=== PATIENT | male | born 1975 | race Native Hawaiian/Other Pacific Islander ===

== ENCOUNTER 2017-03-14 02:08 | Inpatient (IN) | payer OTHER ==
[2017-03-14 03:10] LABS: Basophils % (A) 0 %; CH 34.8; CHCM 34.6; Eosinophils # (A) 0.3 k/uL (0-0.7); Eosinophils % (A) 3 %; HCT 37.6 % (39.0-53.0); HDW 2.71; HGB 13.6 gm/dL (13.0-17.5); Luc # (Auto) 0.27; Luc % (Auto) 2; Lymphocytes # (A) 2.6 k/uL (1.0-4.8); Lymphocytes % (A) 22 %; MCH 36.7 pg (25.0-35.0); MCHC 36.3 g/dL (31.0-37.0); MCV 100.9 fL (80.0-100.0); Macrocytosis Slight; Mean Platelet Volume 7.3; Monocytes # (A) 0.6 k/uL (0-1.0); Monocytes % (A) 5 %; Neutrophils # (A) 8.1 k/uL (1.3-7.7); Neutrophils % (A) 68 %; RBC 3.72 m/uL (4.30-5.90); RDW 13.5 % (11.5-15.5); WBC 11.9 k/uL (3.8-10.6); WBC (Perox) 11.77
--- NOTE | 2017-03-14 03:16 | ED ---
Extremity Problem HPI <Roland Myers - Last Filed: 03/14/17 04:32> - General Source: patient, RN notes reviewed, old records reviewed Mode of arrival: ambulatory Limitations: no limitations <Kimberly Corbin - Last Filed: 03/14/17 05:04> - General Chief complaint: Extremity Problem,Nontraumatic Stated complaint: right knee pain Time Seen by Provider: 03/14/17 02:18 - History of Present Illness Initial comments: This is a 41-year-old male presenting to the ED chief complaint of right knee pain for the past week. Patient reports that he was seen at [facility] and x-rays told he had arthritis. Patient states that since then he has had increased redness and swelling to the knee. Patient reports pain with flexion. Patient states that he is able to bear weight but it is very difficult. Patient denies any calf pain, foot or ankle pain. Denies any peripheral paresthesias. He denies any trauma. Patient reports the pain started after he woke up on Wednesday morning. Patient reports that he has been walking on it at work this week. She denies any fever or chills. He denies any laceration over the knee. Patient denies any recent fever, chills, shortness of breath, chest pain, back pain, abdominal pain, nausea vomiting, numbness or tingling, dysuria or hematuria, constipation or diarrhea, headaches or visual changes, or any other current symptoms (Kimberly Corbin) - Related Data Allergies Allergy/AdvReac Type Severity Reaction Status Date / Time No Known Allergies Allergy Verified 03/14/17 02:15 Review of Systems ROS Other: All systems not noted in ROS Statement are negative. <Roland Myers - Last Filed: 03/14/17 04:32> ROS Other: All systems not noted in ROS Statement are negative. <Kimberly Corbin - Last Filed: 03/14/17 05:04> ROS Statement: Those systems with pertinent positive or pertinent negative responses have been documented in the HPI. Past Medical History Past Medical History: No Reported History History of Any Multi-Drug Resistant Organisms: None Reported Additional Past Surgical History / Comment(s): cyst removed from jaw, reconstructive surgery post dog bite. Past Psychological History: No Psychological Hx Reported Smoking Status: Current every day smoker Past Alcohol Use History: None Reported Past Drug Use History: Marijuana <Kimberly Corbin - Last Filed: 03/14/17 05:04> General Exam <Roland Myers - Last Filed: 03/14/17 04:32> Limitations: no limitations General appearance: alert, in no apparent distress Head exam: Present: atraumatic, normocephalic, normal inspection Eye exam: Present: normal appearance, PERRL, EOMI. Absent: scleral icterus, conjunctival injection, periorbital swelling ENT exam: Present: normal exam, mucous membranes moist Neck exam: Present: normal inspection. Absent: tenderness, meningismus, lymphadenopathy Respiratory exam: Present: normal lung sounds bilaterally. Absent: respiratory distress, wheezes, rales, rhonchi, stridor Cardiovascular Exam: Present: regular rate, normal rhythm, normal heart sounds. Absent: systolic murmur, diastolic murmur, rubs, gallop, clicks GI/Abdominal exam: Present: soft, normal bowel sounds. Absent: distended, tenderness, guarding, rebound, rigid Extremities exam: Present: normal inspection, full ROM, normal capillary refill. Absent: tenderness, pedal edema, joint swelling, calf tenderness Right Upper Leg exam: Present: normal inspection, full ROM Knee exam: Present: tenderness, swelling. Absent: normal inspection, full ROM ( Patient's right knee is swollen, red and tender.) Lower Leg exam: Present: normal inspection, full ROM Ankle exam: Present: normal inspection, full ROM Foot/Toe exam: Present: normal inspection, full ROM Neurovascular tendon exam: Present: no vascular compromise Gait: observed and limited by pain Back exam: Present: normal inspection <Kimberly Corbin - Last Filed: 03/14/17 05:04> - General Exam Comments Initial Comments: Pleasant 41-year-old male. No distress. (Kimberly Corbin) Procedures - Joint Aspiration/Injection Consent Obtained: verbal consent Time Out Performed: Yes Indications: R/O septic arthritis Side of Body: right Joint Aspirated: knee Skin Prep: Chlorhexidine Local Anesthesia Used: Lidocaine 1% Needle Size Used: 22G Patient Tolerated Procedure: well, no complications <Roland Myers - Last Filed: 03/14/17 04:32> <Kimberly Corbin - Last Filed: 03/14/17 05:04> - Joint Aspiration/Injection Additional Comments: Unable to obtain fluid for sample. Care was taken not to proceed over area of erythema. (Roland Myers) Medical Decision Making - Lab Data Result diagrams: 03/14/17 02:33 <Roland Myers - Last Filed: 03/14/17 04:32> - Lab Data Result diagrams: 03/14/17 02:33 - Radiology Data Radiology results: report reviewed <Kimberly Corbin - Last Filed: 03/14/17 05:04> - Medical Decision Making Patient reevaluated by myself, Dr. Myers. Patient does have mild erythema of the right upper [place]. Patient does have effusion with anterior knee tenderness. Patient does meet sepsis criteria with cellulitis diagnosed at 4: 20 AM. Unsuccessful arthrocentesis 2 by myself. Case was discussed with Dr. Abarca, who will admit for hospital call. Orthopedics will be consulted. IV antibiotics have been started. (Roland Myers) This is a 41-year-old male presenting to the ED chief complaint of right knee pain for the past week. Patient reports that he was seen at [facility] and x-rays told he had arthritis. Patient states that since then he has had increased redness and swelling to the knee. Patient reports pain with flexion. Patient states that he is able to bear weight but it is very difficult. Patient denies any calf pain, foot or ankle pain. Denies any peripheral paresthesias. He denies any trauma. Patient reports the pain started after he woke up on Wednesday morning. Patient's lab work was reviewed. Patient has uric acid of 8.0. Patient does have some mild elevation of the white blood cell count of 11.3. I discussed this case with Dr. Myers. Patient' s knee is swollen, red and warm. Patient knee was attempted to be drained by Dr. Myers twice. Unsuccessful for removing the fluid. Patient will be admitted for observation and started on IV antibiotics with a consult to orthopedics. Patient agrees to the admission. He was given pain medication and IV hydration. (iKmberly Corbin) - Lab Data Lab Results 03/14/17 03/14/17 Range/Units 02:33 02:33 WBC 11.9 H (3.8-10.6) k/uL RBC 3.72 L (4.30-5.90) m/uL Hgb 13.6 (13.0-17.5) gm/dL Hct 37.6 L (39.0-53.0) % MCV 100.9 H (80.0-100.0) fL MCH 36.7 H (25.0-35.0) pg MCHC 36.3 (31.0-37.0) g/dL RDW 13.5 (11.5-15.5) % Plt Count 275 (150-450) k/uL Neutrophils % 68 % Lymphocytes % 22 % Monocytes % 5 % Eosinophils % 3 % Basophils % 0 % Neutrophils # 8.1 H (1.3-7.7) k/uL Lymphocytes # 2.6 (1.0-4.8) k/uL Monocytes # 0.6 (0-1.0) k/uL Eosinophils # 0.3 (0-0.7) k/uL Basophils # 0.0 (0-0.2) k/uL Macrocytosis Slight ESR 4 (0-15) mm/hr Uric Acid 8.0 (3.5-8.5) mg/dL - Radiology Data X-ray was reviewed and negative for any acute process. (Kimberly Corbin) Disposition <Roland Myers - Last Filed: 03/14/17 04:32> Time of Disposition: 04:16 <Kimberly Corbin - Last Filed: 03/14/17 05:04> Clinical Impression: Effusion, right knee Disposition: ADMITTED IP TO THIS [facility] Condition: Good Referrals: None,Stated [Primary Care Provider] - 1-2 days
[2017-03-14] MEDS ORDERED: KETOROLAC 30 MG/ML 1 ML VIAL IVP STA (03:20)
[2017-03-14] MEDS ORDERED: HYDROcodone/APAP 10-325MG 1 EACH TAB PO ONE (03:21)
[2017-03-14] MEDS ORDERED: KETOROLAC 60 MG/2 ML VIAL IM STA (03:21)
--- NOTE | 2017-03-14 03:30 | XR ---
EXAM: XR Right Knee, 3 views CLINICAL HISTORY: Reason: Patient complains of right knee pain and swelling 6 days. No known injury. TECHNIQUE: Three views of the right knee. COMPARISON: None FINDINGS: Bones/joints: No acute fracture or dislocation identified. Minimal degenerative spurring of the medial compartment and patellofemoral compartments. Trace knee joint effusion. Soft tissues: Normal. IMPRESSION: Trace knee joint effusion. No acute fracture or dislocation.
[2017-03-14 04:07] LABS: Erythrocyte Sedimentation Rate 4 mm/hr (0-15)
[2017-03-14] MEDS ORDERED: LORazepam 2 MG/ML SYRINGE IV PRN (04:47)
[2017-03-14] MEDS ORDERED: oxyCODONE-APAP 5-325MG 1 EACH TAB PO PRN (04:47)
[2017-03-14] MEDS ORDERED: KETOROLAC 30 MG/ML 1 ML VIAL IVP PRN (04:47)
[2017-03-14] MEDS ORDERED: IBUPROFEN 400 MG TAB PO PRN (04:47)
[2017-03-14] MEDS ORDERED: ONDANSETRON 4 MG/2 ML VIAL IVP PRN (04:47)
[2017-03-14] MEDS ORDERED: ACETAMINOPHEN TAB 325 MG TAB PO PRN (04:47)
[2017-03-14] MEDS ORDERED: NALOXONE 0.4 MG/ML 1 ML VIAL IV PRN (04:47)
[2017-03-14] MEDS ORDERED: SODIUM CHLORIDE 0.9% 1,000 ML IV SCH (05:00)
[2017-03-14 05:03] LABS: Anion Gap 13 mmol/L; Blood Urea Nitrogen 15 mg/dL (9-20); C Reactive Protein 5.1 mg/L (<10.0); Calcium 9.5 mg/dL (8.4-10.2); Carbon Dioxide 21 mmol/L (22-30); Chloride 107 mmol/L (98-107); Glucose 130 mg/dL (74-99); Non-African American GFR(MDRD) >60 (>60 ml/min/1.73 sqM); Potassium 3.6 mmol/L (3.5-5.1); Sodium 141 mmol/L (137-145)
[2017-03-14 05:07] VITALS: RESP 18
[2017-03-14 05:41] VITALS: BP 156/77; PULSE 79; TEMP 98.5; BMI 28.7
[2017-03-14] MEDS ORDERED: NAFCILLIN 2 GM in SODIUM CHLORIDE 0.9% 100 ML IVPB SCH (08:00)
--- NOTE | 2017-03-14 08:38 | P.CNOR ---
History of Present Illness - [facility] Consult date: 03/14/17 Consult reason: joint pain History of present illness: The patient is a 41-year-old male with a medical history significant for smoking who was admitted with right knee pain and cellulitis. The patient states that 6 days ago he developed pain and swelling in the right knee. It progressively worsened over the next several days. He went to [facility] and was told he had degenerative changes in his knee. He continued to have pain and swelling and went to our ER last night. In the emergency department he was felt to have a knee effusion and 2 attempts at aspiration was performed by the emergency department physician, and no fluid was able to be aspirated. This morning the patient is complaining of isolated pain in his right knee. He denies fevers, chills, or generalized malaise. He denies any cuts or insect bites over the right leg. Past Medical History Past Medical History: No Reported History History of Any Multi-Drug Resistant Organisms: None Reported Additional Past Surgical History / Comment(s): cyst removed from jaw, reconstructive surgery post dog bite. Past Psychological History: No Psychological Hx Reported Smoking Status: Current every day smoker Past Alcohol Use History: None Reported Past Drug Use History: Marijuana Medications and Allergies Allergies Allergy/AdvReac Type Severity Reaction Status Date / Time No Known Allergies Allergy Verified 03/14/17 02:15 Physical Examination On examination the patient is in no apparent distress and is resting comfortably in his hospital bed. He is alert and oriented. His head is normocephalic and atraumatic. His cervical spine is nontender. He demonstrates nonlabored breathing with symmetric chest expansion. His abdomen is nontender. On examination of the right leg there is mild swelling in the prepatellar area with mild overlying erythema. The soft tissue over the prepatellar bursa is slightly swollen but there is no palpable fluctuance or crepitance. There is a trace knee effusion. He is able to perform a straight leg raise. He has slight discomfort over the anterior aspect of his knee with passive range of motion. His thigh and calf are soft. There is no ascending lymphangitis or streaking. He has no pain with passive range of motion of his ankle or his toes. His thigh and calf are soft. Results X-rays of the knee show mild swelling over the anterior aspect of the knee but no fractures or bony lesions. Labs were reviewed and the patient has a slightly elevated white count but a normal CRP and ESR. - Labs Labs: Abnormal Lab Results - Last 24 Hours (Table) 03/14/17 03/14/17 03/14/17 Range/Units 02:33 02:33 04:20 WBC 11.9 H (3.8-10.6) k/uL RBC 3.72 L (4.30-5.90) m/uL Hct 37.6 L (39.0-53.0) % MCV 100.9 H (80.0-100.0) fL MCH 36.7 H (25.0-35.0) pg Neutrophils # 8.1 H (1.3-7.7) k/uL Carbon Dioxide 21 L (22-30) mmol/L Glucose 130 H (74-99) mg/dL Plasma Lactic Acid Reuben 2.3 H* (0.7-2.0) mmol/L H & H 03/14/17 Range/Units 02:33 Hgb 13.6 (13.0-17.5) gm/dL Hct 37.6 L (39.0-53.0) % Result Diagrams: 03/14/17 02:33 03/14/17 02:33 Assessment and Plan (1) Prepatellar bursitis Status: Acute Plan: Clinically the patient has physical exam findings consistent with mild overlying cellulitis and prepatellar bursitis. The patient has a minimal knee effusion. Given the fact that the patient has a minimal effusion, no fever, and a normal ESR and CRP I have a very low suspicion of a septic arthritis. I will hold off on another attempt at knee aspiration since he had to dry taps from the ER last night. My recommendation would be to trial the patient on IV antibiotics and monitor his progress. Also recommend using a K-pad the anterior aspect of the knee. I would also recommend repeating ESR and CRP tomorrow to track response to antibiotics and see if they are increasing. If the patient fails to improve on antibiotics or develops worsening of his symptoms would consider another attempt aspiration of his knee or prepatellar bursa, but again I have a very low suspicion of septic arthritis at this time. We will continue to follow while he is in the hospital.
[2017-03-14] MEDS ORDERED: PANTOPRAZOLE 40 MG/10 ML VIAL IV SCH (09:00)
[2017-03-14] MEDS ORDERED: NICOTINE 14MG/24HR PATCH TRANSDERM SCH (09:00)
--- NOTE | 2017-03-14 15:29 | CONS ---
DATE OF CONSULTATION: 03/14/2017 REASON FOR CONSULTATION: Right knee cellulitis. HISTORY OF PRESENT ILLNESS: The patient is a 41-year-old male presenting to the [facility] ER with chief complaint of pain in his right knee that apparently has been going on for about a week that started he woke up Wednesday morning. With it the patient denies any history of any trauma or twisting injury the night before. The patient said initially the knee was painful and swollen but no redness. Apparently he went to [facility] where he did have an x-ray and was told he has some arthritis. The patient has been taking some Motrin and Aleve to help it out. The patient said yesterday he was busy at work. 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 Pain described to be throbbing and dull aching, more on flexion on the knee, about 4 to 5 out of 10 and no radiation. Patient was evaluated by the ER physician. He did have an x-ray which did show knee fluid. An attempt was done to aspirate the knee; however, was unsuccessful. Patient admitted with [facility] and [facility], admitted to hospital with concern for possible septic bursitis. The patient has been evaluated by Ortho and clinically per their note did not behave like a septic arthritis. The patient did have some swelling currently, but his redness is completely resolved. The patient is not running any fever. His white count was normal. CRP was normal. Even the sed rate was normal. The patient really wants to go home as apparently he did have tickets bought for [employer] along with his kids. REVIEW OF SYSTEMS: CONSTITUTIONAL: Positive for weakness but no fever. EYES: No complaint. ENT: No complaint. RESPIRATORY: No complaint. CARDIOVASCULAR: No complaint. GENITOURINARY: No complaint. GASTROINTESTINAL: No complaint. MUSCULOSKELETAL: As per HPI. INTEGUMENTARY: As per HPI. PSYCHOLOGIC: No complaint. ENDOCRINAL: No complaint. NEUROLOGIC: No complaint. PAST MEDICAL HISTORY: The patient did have a dog bite to the jaw 20 years ago. No other medical illnesses. PAST SURGICAL HISTORY: [place] to the jaw and surgery for dog bite. SOCIAL HISTORY: Patient is currently every day smoker, but occasional marijuana use. Denies drinking. FAMILY HISTORY: No pertinent findings were noticed. ALLERGIES: No known drug allergies. MEDICATIONS: The patient is currently on Tylenol, [place], Ceftazidime, Toradol, nafcillin, Narcan, nicotine patch, Percocet, Protonix. On examination, blood pressure is 156/77 with a pulse of 79, temperature 98.5. He is 99% on room air. General description is a middle-age male lying in bed in no distress. No tachypnea or accessory muscle of respiration use. HEENT: The patient shows no pallor or scleral icterus. Oral mucous membrane dry. NECK: Trachea central. There is no thyromegaly. LUNGS: Unlabored breathing. Clear to auscultation anteriorly. No wheeze or crackle. HEART: S1, S2. Regular rate and rhythm. ABDOMEN: Soft, no tenderness. No guarding or rigidity. EXTREMITIES: No edema feet. Examination of the right knee, there is some swelling, very minimal. No significant redness noted. very minimal amount of . No skin breakdown. No drainage. NEUROLOGICAL: Patient is awake, alert and oriented x3. Mood and affect normal. LABS: Hemoglobin is 13.3, white count 11.9 with a BUN of 15 creatinine 0.8. Electrolytes have been normal. Blood culture has been obtained which are currently pending. DIAGNOSTIC IMPRESSION AND PLAN: Patient with right knee pain, swelling and, redness. Concern for possible mild cellulitis. Clinically doubt bursitis or deep knee infection. The patient didnot have significant fluid and was unable to aspirate any fluid out. More likely from Gram-positive skin lamont with overall improvement on ceftazidime and nafcillin. Patient has been advised to stay in the hospital while awaiting for the culture to finalize. The patient did want to go home and the patient will be discharged on oral antibiotic with the instructions if any recurrence of swelling, redness or fever he needs to come back to the emergency room. PLAN: 1. Antibiotic can be switched over to Keflex 500 mg q.6 hours for 10 days. 2. Obtain right knee brace to protect the knee and advised rest, no walking for the next few days. 3. Patient advised to follow up in the office; however, if there is any recurrence of pain, swelling, redness up to the knee or any fever he needs to come back to the ER. Thank you for this consultation. Will follow this patient along with you. REN
--- NOTE | 2017-04-27 04:36 | HP ---
CHIEF COMPLAINT: A 41-year-old male who came into the hospital for the right pain over the last week. He was at another hospital, said he had arthritis, but he came in with increased ( ) the knee. Difficulty with flexion. He was admitted with acute cellulitis versus osteomyelitis of the leg at this time. Denies any fever or chills, chronic chest pain, nausea, vomiting or tingling. ALLERGIES: ( ). REVIEW OF SYSTEMS: Negative. PAST MEDICAL HISTORY: Negative. SURGICAL HISTORY: Cyst removed from his jaw, reconstructive surgery post dog bite. SOCIAL HISTORY: Current every day smoker and marijuana. No alcohol. PHYSICAL EXAM: Vital signs stable, afebrile. CARDIOVASCULAR: S1, S2. LUNGS: Transmitted upper airway sounds. HEMATOLOGY: Negative Homans. PSYCH: Fair mood and affect. NEUROLOGIC: Alert and oriented x3. HEMATOLOGY: Negative Homans. No pedal or calf edema. Musculoskeletal shows right knee is swollen, red and tender. White count 11.9, hemoglobin 13.6. ASSESSMENT: Acute septic bursitis of the right knee. Admit to the hospital at this time. Hyperuremia, possibly gout. Started on IV antibiotic. Consult with Orthopedics and Infectious Disease. REN
--- NOTE | 2017-04-29 07:30 | DS ---
DISCHARGE MEDICATIONS: Keflex 500 mg q.6 hours. COURSE OF EVENTS: This is a 42-year-old white male who was admitted to the hospital with cellulitis of the knee. Seen by Orthopedic consultation, Dr. Sanchez. Was diagnosed with prepatellar bursitis, abnormal ESR and CRP, looks suspicious for septic arthritis. At which time patient wanted to go home. Was sent home on oral Keflex per [facility] recommendations. MTDD
== END 2017-03-14 13:35 | disposition home or self-care (01) | DRG 603 ==
LOC: EC 02:08 → 3SUR 04:35
PROVIDERS: ADMIT Family Medicine; ATTEND Family Medicine
DX: L03.115 Cellulitis of right lower limb (principal); F17.200 Nicotine dependence, unspecified, uncomplicated; F12.90 Cannabis use, unspecified, uncomplicated; M70.41 Prepatellar bursitis, right knee; M19.90 Unspecified osteoarthritis, unspecified site
CPT/HCPCS: 20610; 36415; 80048; 82607; 83605; 84439; 84443; 84550; 85025; 85652; 86140; 87040; 96372; 96374; 99285

== ENCOUNTER 2017-10-22 18:00 | Observation (INO) | payer OTHER ==
--- NOTE | 2017-10-22 20:08 | XR ---
EXAMINATION TYPE: XR knee complete bilateral DATE OF EXAM: 10/22/2017 COMPARISON: NONE HISTORY: Knee pain TECHNIQUE: 6 views FINDINGS: Multiple film exam shows no fracture nor dislocation. Joint spaces are fairly normal. There is no definite joint effusion. There is mild soft tissue swelling anterior to the right patella. IMPRESSION: Right-sided prepatella soft tissue swelling. Otherwise negative exam.
--- NOTE | 2017-10-22 20:09 | ED ---
General Adult HPI <Sukhwinder Bateman - Last Filed: 10/22/17 21:29> - General Source: patient, RN notes reviewed Mode of arrival: ambulatory Limitations: no limitations <Mable Mcpherson - Last Filed: 10/22/17 22:08> - General Chief complaint: Extremity Injury, Lower Stated complaint: PAIN BOTH KNEES Time Seen by Provider: 10/22/17 19:38 - History of Present Illness Initial comments: This is a 42-year-old male who presents to the emergency department with chief complaint of bilateral knee pain and swelling. Patient states that his right knee began to hurt on Wednesday. When he awoke on Wednesday his right knee was swollen. Patient states on Wednesday his left knee began hurting and became swollen as well. Patient denies any specific injuries or trauma. He states that he had a similar episode in February of last year. He was hospitalized at that time and placed on antibiotics. He was seen by Dr. Sanchez who diagnosed him with a prepatellar bursitis. Patient was supposed to follow-up with orthopedics, however he states he does not have health insurance so was unable to. Patient denies any calf, ankle or foot pain. He denies any numbness or tingling. Patient states he is having difficulty walking because he cannot fully flex his knees. Denies fever, chills, chest pain, shortness of breath, abdominal pain, nausea or vomiting, constipation or diarrhea, dysuria or hematuria, numbness or tingling, headache or vision changes. (Mable Mcpherson) - Related Data Home Medications Medication Instructions Recorded Confirmed Ibuprofen [Advil] 800 mg PO Q6H PRN 10/22/17 10/22/17 Allergies Allergy/AdvReac Type Severity Reaction Status Date / Time No Known Allergies Allergy Verified 10/22/17 20:04 Review of Systems ROS Other: All systems not noted in ROS Statement are negative. <FransicoSukhwinder - Last Filed: 10/22/17 21:29> ROS Other: All systems not noted in ROS Statement are negative. <Mable Mcpherson - Last Filed: 10/22/17 22:08> ROS Statement: Those systems with pertinent positive or pertinent negative responses have been documented in the HPI. Past Medical History Past Medical History: No Reported History History of Any Multi-Drug Resistant Organisms: None Reported Additional Past Surgical History / Comment(s): cyst removed from jaw, reconstructive surgery post dog bite. Past Psychological History: No Psychological Hx Reported Smoking Status: Current every day smoker Past Alcohol Use History: Daily Past Drug Use History: Marijuana <VidaTera gamezMable M - Last Filed: 10/22/17 22:08> General Exam <Sukhwinder Bateman - Last Filed: 10/22/17 21:29> Limitations: no limitations <[place],Mable Carline - Last Filed: 10/22/17 22:08> - General Exam Comments Initial Comments: General: Awake and alert, well-developed; in no apparent distress. HEENT: Head atraumatic, normocephalic. Pupils are equal, round and reactive to light. Extraocular movements intact. Oropharynx moist without erythema or exudate. Neck: Supple. Normal ROM. Cardiovascular: Regular rate and rhythm. No murmurs, rubs or gallops. Chest symmetrical. Respiratory: Lungs clear to auscultation bilaterally. No wheezes, rales or rhonchi. Normal respiratory effort with no use of accessory muscles. Musculoskeletal: Bilateral knees have limited range of motion with flexion due to pain. Bilateral knees are swollen, mildly erythematous and warm. Tenderness to palpation on anterior bilateral knees. Sensation is intact. Pedal pulses are 2+ equal and palpable bilaterally. Skin: [place], warm and dry without rashes. Neurological: Alert and oriented x3. CN II-XII grossly intact. Speech is fluent and answers are appropriate. No focal neuro deficits. Psychiatric: Normal mood and affect. No overt signs of depression or anxiety noted. (Mable Mcpherson) Course <Sukhwinder Bateman - Last Filed: 10/22/17 21:29> <VidaTera gamezMable Carline - Last Filed: 10/22/17 22:08> Vital Signs 10/22/17 10/22/17 18:15 21:05 Temperature 99 F 98.3 F Pulse Rate 110 H 85 Respiratory 16 20 Rate Blood Pressure 150/88 148/92 O2 Sat by Pulse 99 98 Oximetry - Reevaluation(s) Reevaluation #1: 10/22/17 21:29 Supervision: I did personally do a [id number] evaluation as patient did discuss the findings with him. He does demonstrate bilateral knee pain with increased pain to palpation especially over the anterior aspect with erythema seen more so on the left than the right. He has marked difficulty with ambulation. Low-grade fever upon admission elevated white blood cell count with left shift. I did discuss the case with the medical service on-call patient will be admitted with orthopedic consultation. The patient will be started on broad-spectrum antibiotic. (Sukhwinder Bateman) Medical Decision Making - Lab Data Result diagrams: 10/22/17 20:47 10/22/17 20:47 <Sukhwinder Bateman - Last Filed: 10/22/17 21:29> - Lab Data Result diagrams: 10/22/17 20:47 10/22/17 20:47 - Radiology Data Radiology results: report reviewed <Mable Mcpherson - Last Filed: 10/22/17 22:08> - Medical Decision Making This is a 43-year-old male who presents to the emergency department for evaluation of bilateral knee pain and swelling. Bilateral knees are tender anteriorly, warm and swollen. Left knee is erythematous. Patient complains of associated fevers and chills. Symptoms of right knee began when he woke up on Wednesday morning and left knee began on Wednesday. Patient states he is able to bear weight but has difficulty walking due to the pain. He reports pain with flexion. Patient denies any calf, ankle or foot pain. He denies any specific injuries or trauma. Patient had an elevated white count at 12.6 with a left shift at 10.2. CRP is 10.7. ESR is within normal limits at 4. This case was discussed with attending physician, Dr. Bateman, who also evaluated the patient. Patient will be started on broad-spectrum antibiotics as well as anti- inflammatories. Patient will be admitted to Dr. Engle with consult to Dr. Sanchez for possible septic arthritis. Patient is in agreement with plan and voices understanding. All questions were answered. (Mable Mcpherson) - Lab Data Lab Results 10/22/17 10/22/17 Range/Units 20:47 20:47 WBC 12.6 H (3.8-10.6) k/uL RBC 4.13 L (4.30-5.90) m/uL Hgb 13.9 (13.0-17.5) gm/dL Hct 42.2 (39.0-53.0) % MCV 102.2 H (80.0-100.0) fL MCH 33.7 (25.0-35.0) pg MCHC 33.0 (31.0-37.0) g/dL RDW 14.8 (11.5-15.5) % Plt Count 279 (150-450) k/uL Neutrophils % 81 % Lymphocytes % 12 % Monocytes % 4 % Eosinophils % 2 % Basophils % 0 % Neutrophils # 10.2 H (1.3-7.7) k/uL Lymphocytes # 1.5 (1.0-4.8) k/uL Monocytes # 0.5 (0-1.0) k/uL Eosinophils # 0.3 (0-0.7) k/uL Basophils # 0.0 (0-0.2) k/uL Macrocytosis Slight ESR 4 (0-15) mm/hr Sodium 141 (137-145) mmol/L Potassium 3.7 (3.5-5.1) mmol/L Chloride 106 (98-107) mmol/L Carbon Dioxide 25 (22-30) mmol/L Anion Gap 10 mmol/L BUN 12 (9-20) mg/dL Creatinine 0.70 (0.66-1.25) mg/dL Est GFR (MDRD) Af Amer >60 (>60 ml/min/1.73 sqM) Est GFR (MDRD) Non-Af >60 (>60 ml/min/1.73 sqM) Glucose 113 H (74-99) mg/dL Uric Acid 6.6 (3.5-8.5) mg/dL Calcium 9.4 (8.4-10.2) mg/dL Total Bilirubin 0.4 (0.2-1.3) mg/dL AST 24 (17-59) U/L ALT 31 (21-72) U/L Alkaline Phosphatase 75 (38-126) U/L C-Reactive Protein 10.7 H (<10.0) mg/L Total Protein 7.0 (6.3-8.2) g/dL Albumin 4.2 (3.5-5.0) g/dL - Radiology Data X-ray bilateral knee findings: Multiple films exam shows no fracture nor dislocation. Joint spaces are fairly normal. There is no definite joint effusion. There is mild soft tissue swelling anterior to the right patella. Impression: Right-sided pre-patella soft tissue swelling. Otherwise negative exam. (Mable Mcpherson) Disposition <Sukhwinder Bateman - Last Filed: 10/22/17 21:29> Time of Disposition: 22:04 <Mable Mcpherson - Last Filed: 10/22/17 22:08> Clinical Impression: Prepatellar bursitis, Septic arthritis Disposition: ADMITTED IP TO THIS HOSP Condition: Stable Referrals: None,Stated [Primary Care Provider] - 1-2 days
[2017-10-22 20:57] LABS: Basophils % (A) 0 %; Eosinophils # (A) 0.3 k/uL (0-0.7); Eosinophils % (A) 2 %; HCT 42.2 % (39.0-53.0); HGB 13.9 gm/dL (13.0-17.5); Lymphocytes # (A) 1.5 k/uL (1.0-4.8); Lymphocytes % (A) 12 %; MCH 33.7 pg (25.0-35.0); MCV 102.2 fL (80.0-100.0); Macrocytosis Slight; Mean Platelet Volume 7.3; Monocytes # (A) 0.5 k/uL (0-1.0); Monocytes % (A) 4 %; Neutrophils # (A) 10.2 k/uL (1.3-7.7); Neutrophils % (A) 81 %; Platelet Count 279 k/uL (150-450); RBC 4.13 m/uL (4.30-5.90); RDW 14.8 % (11.5-15.5); WBC 12.6 k/uL (3.8-10.6)
[2017-10-22 21:09] LABS: Anion Gap 10 mmol/L; Blood Urea Nitrogen 12 mg/dL (9-20); Carbon Dioxide 25 mmol/L (22-30); Chloride 106 mmol/L (98-107); Glucose 113 mg/dL (74-99); Potassium 3.7 mmol/L (3.5-5.1); Sodium 141 mmol/L (137-145)
[2017-10-22 21:10] LABS: ALT 31 U/L (21-72); AST 24 U/L (17-59); Albumin 4.2 g/dL (3.5-5.0); Alkaline Phosphatase 75 U/L (38-126); C Reactive Protein 10.7 mg/L (<10.0); Calcium 9.4 mg/dL (8.4-10.2); Total Bilirubin 0.4 mg/dL (0.2-1.3); Uric Acid 6.6 mg/dL (3.5-8.5)
[2017-10-22] MEDS ORDERED: AMPICILLIN-SULBACTAM 3 GM in SODIUM CHLORIDE 0.9% 100 ML IVPB STA (21:23)
[2017-10-22] MEDS ORDERED: KETOROLAC 30 MG/ML 1 ML VIAL IVP STA (21:24)
[2017-10-22 21:42] LABS: Erythrocyte Sedimentation Rate 4 mm/hr (0-15)
[2017-10-22] MEDS ORDERED: KETOROLAC 30 MG/ML 1 ML VIAL IVP PRN (22:04)
[2017-10-22] MEDS ORDERED: ONDANSETRON 4 MG/2 ML VIAL IVP PRN (22:04)
[2017-10-22] MEDS ORDERED: NALOXONE 0.4 MG/ML 1 ML VIAL IV PRN (22:04)
[2017-10-22] MEDS ORDERED: IBUPROFEN 400 MG TAB PO PRN (22:04)
[2017-10-22] MEDS ORDERED: NICOTINE 21MG/24HR PATCH TRANSDERM STA (22:24)
[2017-10-22] MEDS: HYDROmorphone 4 MG/ML 1 ML SYRINGE IVP PRN (22:54)
[2017-10-22] MEDS: SODIUM CHLORIDE 0.9% 1,000 ML IV SCH (22:54)
[2017-10-23] MEDS: HYDROmorphone 4 MG/ML 1 ML SYRINGE IVP PRN ×2 (01:23→05:55)
[2017-10-23] MEDS: AMPICILLIN-SULBACTAM 3 GM in SODIUM CHLORIDE 0.9% 100 ML IVPB SCH ×3 (05:55→17:44)
[2017-10-23 07:18] LABS: Basophils % (A) 0 %; Eosinophils # (A) 0.3 k/uL (0-0.7); Eosinophils % (A) 3 %; HCT 38.6 % (39.0-53.0); HGB 12.7 gm/dL (13.0-17.5); Lymphocytes # (A) 1.6 k/uL (1.0-4.8); Lymphocytes % (A) 14 %; MCH 33.1 pg (25.0-35.0); MCHC 32.9 g/dL (31.0-37.0); MCV 100.8 fL (80.0-100.0); Macrocytosis Slight; Mean Platelet Volume 7.6; Monocytes # (A) 0.5 k/uL (0-1.0); Monocytes % (A) 4 %; Neutrophils # (A) 8.4 k/uL (1.3-7.7); Neutrophils % (A) 77 %; Platelet Count 259 k/uL (150-450); RBC 3.83 m/uL (4.30-5.90); RDW 13.7 % (11.5-15.5)
[2017-10-23 07:37] LABS: Anion Gap 9 mmol/L; Blood Urea Nitrogen 13 mg/dL (9-20); Calcium 9.2 mg/dL (8.4-10.2); Carbon Dioxide 25 mmol/L (22-30); Chloride 106 mmol/L (98-107); Glucose 107 mg/dL (74-99); Potassium 4.1 mmol/L (3.5-5.1); Sodium 140 mmol/L (137-145)
--- NOTE | 2017-10-23 09:12 | P.CNOR ---
History of Present Illness - [facility] Consult date: 10/23/17 History of present illness: the patient is a 42-year-old male with a medical history significant for being a current every day cigarette smoker and having had a prior history of prepatellar bursitiswho is admitted with cellulitis and prepatellar bursitis. According to the patient, who works as a cook, he has had atraumatic pain in both of his knees that has progressively worsened since this past Wednesday. Yesterday it increased to the point that he came into the emergency department. He was admitted to internal medicine for antibiotics and orthopedics consultation. This morning at the time of my evaluation the patient is complaining of bilateral knee pain, left worse than right. He denies fevers or chills but does have mild generalized malaise. He says he is able to walk, but with some difficulty. He has some difficulty with movement of the left knee. He has no other complaints. Past Medical History Past Medical History: Hypertension History of Any Multi-Drug Resistant Organisms: None Reported Additional Past Surgical History / Comment(s): cyst removed from jaw, reconstructive surgery post dog bite. Past Anesthesia/Blood Transfusion Reactions: No Reported Reaction Past Psychological History: No Psychological Hx Reported Smoking Status: Current every day smoker Past Alcohol Use History: Daily Past Drug Use History: Marijuana Medications and Allergies Home Medications Medication Instructions Recorded Confirmed Type Ibuprofen [Advil] 800 mg PO Q6H PRN 10/22/17 10/22/17 History Allergies Allergy/AdvReac Type Severity Reaction Status Date / Time No Known Allergies Allergy Verified 10/22/17 20:04 Physical Examination on examination the patient is in no apparent distress and is alert, comfortable , and able to answer questions. His head is normocephalic and atraumatic. He demonstrates nonlabored breathing with symmetric chest expansion. His abdomen is nonobese. He has palpable peripheral pulses. On examination of the right lower extremity there is mild swelling and erythema over the anterior aspect of the patella. There are no open wounds. There is no knee effusion. There is no palpable fluctuance or subcutaneous crepitance. He has no pain with passive range of motion of the hip or knee. The thigh and calf are soft. Distally his right foot is neurovascularly intact. On inspection of the left knee there is mild swelling and erythema over the anterior aspect of the patella but no open wounds. There is a trace knee effusion. There is no palpable fluctuance, but the prepatellar bursa is slightly boggy. The thigh and calf are soft. Distally the left foot is neurovascularly intact. Results The patient's x-rays show no acute fractures, bony lesions, loose bodies, or sign of deep infection. He has a slightly elevated ESR and CRP. - Labs Labs: Abnormal Lab Results - Last 24 Hours (Table) 10/22/17 10/22/17 10/23/17 Range/Units 20:47 20:47 06:28 WBC 12.6 H 11.0 H (3.8-10.6) k/uL RBC 4.13 L 3.83 L (4.30-5.90) m/uL Hgb 12.7 L (13.0-17.5) gm/dL Hct 38.6 L (39.0-53.0) % MCV 102.2 H 100.8 H (80.0-100.0) fL Neutrophils # 10.2 H 8.4 H (1.3-7.7) k/uL Glucose 113 H (74-99) mg/dL C-Reactive Protein 10.7 H (<10.0) mg/L 10/23/17 Range/Units 06:28 WBC (3.8-10.6) k/uL RBC (4.30-5.90) m/uL Hgb (13.0-17.5) gm/dL Hct (39.0-53.0) % MCV (80.0-100.0) fL Neutrophils # (1.3-7.7) k/uL Glucose 107 H (74-99) mg/dL C-Reactive Protein (<10.0) mg/L H & H 10/22/17 10/23/17 Range/Units 20:47 06:28 Hgb 13.9 12.7 L (13.0-17.5) gm/dL Hct 42.2 38.6 L (39.0-53.0) % Result Diagrams: 10/23/17 06:28 10/23/17 06:28 Assessment and Plan (1) Prepatellar bursitis Current Visit: Yes Status: Acute Code(s): M70.40 - PREPATELLAR BURSITIS, UNSPECIFIED KNEE SNOMED Code(s): 48822803 Plan: The patient is a 42-year-old male smoker who is currently admitted to internal medicine with mild cellulitis and prepatellar bursitis in both knees. There is absolutely no clinical evidence of septic arthritis in either knee. I would recommend a trial of IV antibiotics and see how he responds. I would also recommend K pad's and warm compresses over the anterior aspect of both knees. I will defer to internal medicine and infectious disease for choice of antibiotic, route of administration, and duration of treatment. We will continue to follow the patient while he is in the hospital. No plans for aspiration at this time as there is no knee effusion or area of fluctuance to aspirate. If the patient fails to improve or develops an abscess or effusion we will aspirate.
[2017-10-23] MEDS: SODIUM CHLORIDE 0.9% 1,000 ML IV SCH ×2 (09:48→19:34)
[2017-10-23 15:48] VITALS: BP 157/91; PULSE 72; RESP 20; TEMP 97.8
--- NOTE | 2017-10-23 17:35 | HP ---
HISTORY AND PHYSICAL HISTORY AND PHYSICAL AND DISCHARGE SUMMARY: DATE OF ADMISSION: 10/22/2017 PRESENTING COMPLAINT: Knee pain. 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 The patient presented with pain that started in the right knee on Wednesday, became rather significant and then after 3 days that became pain in the left knee. The patient had no fever. No rash. No injury. The patient does not work on his knees. The patient has a similar episode back in March of this year, was in the hospital very briefly, got some antibiotics and ibuprofen to which he improved. The patient does smoke about half a pack a day, drinks a pint of whiskey at night and does smoke marijuana. The patient's occupation is more standing. It does not have any pressure on the knee. REVIEW OF SYSTEMS: CONSTITUTIONAL: None. HEENT: None. RESPIRATORY: None. CARDIOVASCULAR: None. GASTROINTESTINAL: None. GENITOURINARY: None. MUSCULOSKELETAL: As above. No other joints are involved. HEMATOLOGIC: None. LYMPHATIC: None. PSYCHIATRY: Some anxiety. NEUROLOGICAL: None. PAST MEDICAL HISTORY: Hypertension. PAST SURGICAL HISTORY: Cyst removed from the jaw, reconstructive surgery postop bite. SOCIAL HISTORY: Smokes about half a pack a day. Does marijuana. Drinks a pint of alcohol a day. Patient works as a cook at [employer]. FAMILY HISTORY: Reviewed, noncontributory to presentation. HOME MEDICATIONS: Ibuprofen 800 mg every 6 hours p.r.n. ALLERGIES: None. EXAMINATION: VITAL SIGNS: On presentation, temperature 99, pulse 110, respirations 16, blood pressure 150/88, pulse ox 99% on room air. GENERAL APPEARANCE: Average build, lying in bed, somewhat flushed. EYES: Pupils equal. Conjunctivae normal. HEENT: Oral cavity normal. NECK: JVD not raised. Mass not palpable. RESPIRATORY: Effort normal. LUNGS: Fair air entry. CARDIOVASCULAR: First and second sounds normal. No edema. ABDOMEN: Soft, nontender. Liver and spleen not palpable. LYMPHATIC: No lymph node palpable in neck or axillae. PSYCHIATRY: Alert and oriented x3. Mood and affect normal. NEUROLOGICAL: Pupils equal. Cranial nerve grossly intact. Power and sensation grossly intact. MUSCULOSKELETAL: There is mild tenderness in the right and left knee with very slight signs of inflammation, including tenderness. The patient is able to bend his knees. INVESTIGATIONS: White count 12.6, hemoglobin 13.9, MCV 102.2. Potassium 3.7. Reactive protein 10.7. Uric acid 6.6. ASSESSMENT: 1. Mild prepatellar bursitis and possible cellulitis of the right and left knee. The patient has no fever, elevated white count and uric acid is normal. 2. Chronic nicotine dependence. Patient is a cigarette smoker. 3. Chronic alcohol dependence with macrocytosis. PLAN: Patient did get a couple doses of IV Unasyn. Patient can get Keflex for another week. The patient will get a nicotine patch. Will also give naproxen. The patient is counseled against smoking and alcohol and will have him follow up with Dr. Sanchez as an outpatient and also told to follow up with a family doctor. MMKATERINL / YESIN: [id number] /
--- NOTE | 2017-10-24 08:28 | CONS ---
CONSULTATION DATE OF SERVICE: 10/23/2017. REASON FOR CONSULTATION: Prepatellar bursitis and antibiotic recommendation. HISTORY OF PRESENT ILLNESS: The patient is a 42-year-old male who previously seen at this facility back in February of 2017 when the patient presented with right knee prepatellar bursitis. The patient was treated with IV antibiotic therapy and subsequently discharged home on the oral Keflex. The patient did mention that he had to the Keflex for a few days and then his knee pain and swelling resolved and did not have any problems since then. Apparently the patient did inject his right knee at work on Wednesday. The patient said he started using a knee brace and has been favoring his right knee. He denied deep venous swelling and subsequently started having pain in his left knee area for the last 3 days. Pain is mostly dull aching, worse when he walks on it. Intensity is about 4 to 5/10, and no radiation. There is some swelling and redness associated with it, but no significant breakdown. Patient denies any high-grade fever and chills. With these symptoms, the patient presented to the ER where the patient was evaluated by the ER physician. The patient did have bilateral knees x-rays which did show a right- sided prepatellar soft tissue and swelling. The patient did not have an elevated fever, however, did have white count 12.6 and repeat was 11,000. The patient has been treated with Unasyn. ID was consulted for further recommendation regarding his antibiotic therapy. REVIEW OF SYSTEMS: CONSTITUTIONAL: Positive for weakness. Denies any high-grade fever. EYES: No complaint. ENT: No complaint. RESPIRATORY: No complaint. CARDIOVASCULAR: No complaint. GENITOURINARY: No complaint. GASTROINTESTINAL: No complaint. MUSCULOSKELETAL: As per HPI. INTEGUMENTARY: As per HPI. PSYCHOLOGICAL: No complaint. ENDOCRINE: No complaint. NEUROLOGIC: No complaint. PAST MEDICAL HISTORY: Hypertension, right knee prepatellar bursitis in February of 2017. PAST SURGICAL HISTORY: Cyst removed from his back, surgery after a dog bite. SOCIAL HISTORY: The patient is a current everyday smoker. Does admit to drinking and marijuana use. Works as a cook. FAMILY HISTORY: No pertinent findings noticed. ALLERGIES: No known drug allergies. MEDICATIONS: Include the patient is currently on Unasyn 3 g every 6, NovoLog, Dilaudid, Motrin, Toradol, Marcaine, Zofran. EXAMINATION: Blood pressure is 157/91 with a pulse of 72, temperature of 97.8. He is 100% on room air. General description is a middle-aged male up in the bed in no distress. RESPIRATORY SYSTEM: Unlabored breathing, clear to auscultation anteriorly. HEART: S1, S2. Regular rate and rhythm. No murmur ABDOMEN: Soft, no tenderness. No guarding, no rigidity. No organomegaly EXTREMITIES: No edema of feet. Examination of the right knee, no significant swelling or redness. The left knee did show minimal erythema, slightly swelling, but no fluctuation induration or skin breakdown. NEUROLOGICAL: Patient is awake, alert, oriented. Mood and affect normal. LABS: Hemoglobin is 12.7, white count 11. White count was 12.3 yesterday, CRP of 10.7 , BUN of 13, creatinine 0.74. X-ray report as mentioned above. DIAGNOSTIC IMPRESSION AND PLAN: Patient with bilateral knee pain initially starting in the right knee with the patient did have previous history of any prepatellar bursitis now with most of the symptoms in the left knee area. Suspect less likely patient to have a bilateral prepatellar bursitis infectious and could be rheumatological disorder as there was some history of trauma to the right but not to the left and currently no skin breakdown with overall improvement in the Unasyn. Underlying cellulitis secondary to the gram-positive lamont not entirely excluded. PLAN: 1. We will obtain LYLE,ANCA, CBC, BMP tomorrow, to make sure white count normalized. 2. Keep the patient on Unasyn 3 g every 6 hours. However, the patient continues to improve the patient may finish with oral Keflex 500 mg q.6h for another 10 days. Thank you for this consultation. Will follow this patient along with you. MMODL / IJN: [id number] / REN
[2017-10-24] MEDS ORDERED: ENOXAPARIN 40 MG/0.4 ML SYRINGE SQ SCH (09:00)
--- NOTE | 2017-11-08 15:10 | CDI ---
Outpatient Documentation Clarification Form Date: 11/08/17 CDS/Char Filter Operator Helper Name: Destiny Davidson Phone: If any questions, call Millicent Curiel Tank Truck Driver at [phone] Patient Name: Onesimo Baumann Admit Date: 10/22/17 Discharge Date: 10/23/17 ATTENTION: The [facility] Coding Staff appreciate your assistance in clarifying documentation. Please respond to the clarification below the line at the bottom and electronically sign. The [facility] Coding staff will review the response and follow-up if needed. Please note: Queries are made part of the Legal Health Record. If you have any questions, please contact the Tank Truck Driver. Dear Dr. Engle, Need clarification of conflicting diagnosis of B/L pre-patellar bursitis. Your combo H&P/Discharge summary dictated 10/23/17 @ 17:09, states mild pre- patellar bursitis Consult - Dr Herrera dictated 10/23/17 @ 22:40, which is after your dictation, states suspect bilateral pre-patellar bursitis and could be rheumatological disorder. I need to be sure that you saw Dr Hicks dictation. Please confirm one of the followin. B/L pre-patellar bursitis 2. B/L pre-patellar bursitis, suspected 3. B/L pre-patellar bursitis, unable to determine Please enter your diagnosis clarification below the line on this form. I greatly appreciated it! Thank you for your kind consideration. REN
== END 2017-10-23 19:34 | disposition home or self-care (01) ==
LOC: EC 18:00 → 3SUR 21:31
PROVIDERS: ADMIT Hospitalist; ATTEND Hospitalist
DX: M70.41 Prepatellar bursitis, right knee (principal); M70.42 Prepatellar bursitis, left knee; F12.90 Cannabis use, unspecified, uncomplicated; F10.20 Alcohol dependence, uncomplicated; D75.89 Other specified diseases of blood and blood-forming organs; F17.210 Nicotine dependence, cigarettes, uncomplicated
CPT/HCPCS: 96365 ×2; 96375 ×3; 99284 ×2; 96376; 96366; 36415; 80053; 80048; 85652; 83605; 84550; 85025 ×2; 86140; 87040; 73562; G0378 ×2; S4990; J1885 ×2; J0295 ×2; J1170 ×2

== ENCOUNTER 2023-10-06 11:20 | Observation (INO) | payer BC, OTHER ==
[2023-10-06 11:24] VITALS: TEMP 97.9
[2023-10-06 11:49] LABS: Basophils % (A) 0 %; Eosinophils # (A) 0.2 k/uL (0-0.7); Eosinophils % (A) 2 %; HCT 48.2 % (39.0-53.0); HGB 15.8 gm/dL (13.0-17.5); Lymphocytes # (A) 1.6 k/uL (1.0-4.8); Lymphocytes % (A) 14 %; MCH 32.6 pg (25.0-35.0); MCHC 32.9 g/dL (31.0-37.0); MCV 99.1 fL (80.0-100.0); Mean Platelet Volume 8.2; Monocytes # (A) 0.5 k/uL (0-1.0); Monocytes % (A) 5 %; Neutrophils # (A) 8.7 k/uL (1.3-7.7); Neutrophils % (A) 78 %; Platelet Count 247 k/uL (150-450); RBC 4.86 m/uL (4.30-5.90); RDW 13.5 % (11.5-15.5); WBC 11.1 k/uL (3.8-10.6)
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
[2023-10-06 12:06] LABS: ALT 18 U/L (4-49); AST 22 U/L (17-59); African American GFR (CKD) >90 (>60 ml/min/1.73 sqM); Albumin 4.4 g/dL (3.5-5.0); Alkaline Phosphatase 70 U/L (38-126); Anion Gap 7 mmol/L; Blood Urea Nitrogen 16 mg/dL (9-20); Calcium 9.3 mg/dL (8.4-10.2); Carbon Dioxide 27 mmol/L (22-30); Chloride 107 mmol/L (98-107); Glucose 110 mg/dL (74-99); Magnesium 1.9 mg/dL (1.6-2.3); Non-African American GFR(CKD) >90 (>60 ml/min/1.73 sqM); Potassium 4.1 mmol/L (3.5-5.1); Sodium 141 mmol/L (137-145); Total Bilirubin 0.8 mg/dL (0.2-1.3); Total Protein 7.4 g/dL (6.3-8.2)
[2023-10-06 12:17] LABS: Partial Thromboplastin Time 26.3 sec (22.0-30.0); Prothrombin Time 11.3 sec (10.0-12.5)
[2023-10-06] MEDS ORDERED: NICOTINE 21MG/24HR PATCH TRANSDERM STA (15:30)
[2023-10-06] MEDS ORDERED: NITROGLYCERIN SL TABS 0.4 MG TAB SUBLINGUAL PRN (15:31)
[2023-10-06] MEDS ORDERED: ASPIRIN 81 MG PO STA (15:31)
--- NOTE | 2023-10-06 15:42 | ED ---
Chest Pain HPI - General Chief Complaint: Chest Pain Stated Complaint: Chest Pain Time Seen by Provider: 10/06/23 13:39 Source: patient, RN notes reviewed Mode of arrival: wheelchair Limitations: no limitations - History of Present Illness Initial Comments: 48-year-old male presents emergency Department with chief complaint of chest pain. Patient states been having some chest discomfort has worsened. He states his daily left-sided chest pain rates on his arm states he feels like he has pressure, pain in his chest makes it difficult to breathe. Patient states she is a smoker he has some family cardiac history. - Related Data Home Medications Medication Instructions Recorded Confirmed Aspirin EC [Ecotrin Low Dose] 81 mg PO DAILY 10/06/23 10/06/23 Allergies Allergy/AdvReac Type Severity Reaction Status Date / Time No Known Allergies Allergy Verified 10/06/23 14:55 Review of Systems ROS Statement: Those systems with pertinent positive or pertinent negative responses have been documented in the HPI. ROS Other: All systems not noted in ROS Statement are negative. EKG Findings - EKG Comments: EKG Findings:: EKG performed at 11:29 sinus rhythm with short AL rate of 71. 104 QRS 97 QT/QTC 394/417 there is inverted T-wave in lead 3, aVF - EKG Results: EKG: interpreted by CHANDANA Past Medical History Past Medical History: Hypertension History of Any Multi-Drug Resistant Organisms: None Reported Additional Past Surgical History / Comment(s): cyst removed from jaw, reconstructive surgery post dog bite. Past Anesthesia/Blood Transfusion Reactions: No Reported Reaction Past Psychological History: No Psychological Hx Reported Smoking Status: Current every day smoker Past Alcohol Use History: Daily Past Drug Use History: Marijuana General Exam Limitations: no limitations General appearance: alert, in no apparent distress Head exam: Present: atraumatic, normocephalic, normal inspection Eye exam: Present: normal appearance, PERRL, EOMI. Absent: scleral icterus, conjunctival injection, periorbital swelling ENT exam: Present: normal exam, normal oropharynx, mucous membranes moist Neck exam: Present: normal inspection, full ROM. Absent: tenderness, meningismus, lymphadenopathy Respiratory exam: Present: normal lung sounds bilaterally. Absent: respiratory distress, wheezes, rales, rhonchi, stridor Cardiovascular Exam: Present: regular rate, normal rhythm, normal heart sounds. Absent: systolic murmur, diastolic murmur, rubs, gallop, clicks Course Vital Signs 10/06/23 11:21 Temperature 97.9 F Pulse Rate 76 Respiratory 18 Rate Blood Pressure 161/92 O2 Sat by Pulse 99 Oximetry Chest Pain MDM - MDM Was pt. sent in by a medical professional or institution (, [facility], CANCER REGISTRAR, urgent care, hospital, or assisted...) When possible be specific @ -[No] Did you speak to anyone other than the patient for history (EMS, parent, family, police, friend...)? What history was obtained from this source @ -[No] Did you review nursing and triage notes (agree or disagree)? Why? @ -[I reviewed and agree with nursing and triage notes] Were old charts reviewed (outside hosp., previous admission, EMS record, old EKG, old radiological studies, urgent care reports/EKG's, assisted records)? Report findings @ -[No old charts were reviewed] Differential Diagnosis (chest pain, altered mental status, abdominal pain women, abdominal pain men, vaginal bleeding, weakness, fever, dyspnea, syncope, headache, dizziness, GI bleed, back pain, seizure, CVA, palpatations, mental health, musculoskeletal)? @ -[ADifferential Chest Pain: Stable Angina, Unstable Angina, STEMI, NSTEMI Aortic Dissection, Pneumothorax, Musculoskeletal, Esophageal Spasm GERD, Cholecystitis, Pancreatitis, Zoster, this is not meant to be an all-inclusive list. in] EKG interpreted by me (3pts min.). @ -[As above] X-rays interpreted by me (1pt min.). @ -[Chest x-ray shows no acute cardiopulmonary point process] CT interpreted by me (1pt min.). @ -[None done] U/S interpreted by me (1pt. min.). @ -[None done] What testing was considered but not performed or refused? (CT, X-rays, U/S, labs)? Why? @ -[None] What meds were considered but not given or refused? Why? @ -[None] Did you discuss the management of the patient with other professionals (professionals i.e. , [facility], CANCER REGISTRAR, lab, RT, psych nurse, sr. social media & mobile manager, fabric sourcer, teacher, amphibious operations officer, hospice case manager)? Give summary @ -[Dr. Abarca for admission chronic rule out] Was smoking cessation discussed for >3mins.? @ -[No] Was critical care preformed (if so, how long)? @ -[No] Were there social determinants of health that impacted care today? How? (Homelessness, low income, unemployed, alcoholism, drug addiction, transportation, low edu. Level, literacy, decrease access to med. care, residential, rehab)? @ -[No] Was there de-escalation of care discussed even if they declined (Discuss DNR or withdrawal of care, Hospice)? DNR status @ -[No] What co-morbidities impacted this encounter? (DM, HTN, Smoking, COPD, CAD, Cancer, CVA, ARF, Chemo, Hep., AIDS, mental health diagnosis, sleep apnea, morbid obesity)? @ -[Smoking] Was patient admitted / discharged? Hospital course, mention meds given and route, prescriptions, significant lab abnormalities, going to OR and other pertinent info. @ -[Admitted initial troponin is negative. Patient be admitted for repeat troponin, triage evaluation echocardiogram. Undiagnosed new problem with uncertain prognosis? @ -[No] Drug Therapy requiring intensive monitoring for toxicity (Heparin, Nitro, Insulin, Cardizem)? @ -[No] Were any procedures done? @ -[No] Diagnosis/symptom? @ -[Chest pain] Acute, or Chronic, or Acute on Chronic? @ -[Acute] Uncomplicated (without systemic symptoms) or Complicated (systemic symptoms)? @ -[complicated Side effects of treatment? @ -[No] Exacerbation, Progression, or Severe Exacerbation? @ -[No] Poses a threat to life or bodily function? How? (Chest pain, [place], [place], pneumonia, PE, COPD, DKA, ARF, appy, cholecystitis, CVA, Diverticulitis, Homicidal, Suicidal, threat to staff... and all critical care pts) @ -[yes chest pain possible ACS Disposition Clinical Impression: Chest pain Disposition: ADMITTED IP TO THIS HOSP Referrals: None,Stated [Primary Care Provider] - 1-2 days Time of Disposition: 14:41
[2023-10-06] MEDS ORDERED: IPRATROPIUM-ALBUTEROL 3 ML NEB INHALATION STA (20:32)
[2023-10-06] MEDS: LORazepam 2 MG/ML INJ IV PRN (22:30)
[2023-10-07] MEDS ORDERED: DOBUTamine DRIP for NUC MED 500 MG in DEXTROSE/WATER 1 250ML.BAG IV PRN (08:24)
[2023-10-07] MEDS ORDERED: ASPIRIN 325 MG TAB PO SCH (09:00)
[2023-10-07] MEDS ORDERED: ASPIRIN 81 MG PO SCH (09:00)
--- NOTE | 2023-10-07 09:44 | P.CRDCN ---
History of Present Illness History of present illness: HISTORY OF PRESENT ILLNESS: This is a 48-year-old male with a past medical history significant for prior alcohol abuse, nicotine dependence, and hypertension. Patient does not follow with a limnology teacher. We have been asked to see the patient in consultation for chest pain. Patient examined at the bedside. and patient states over the past couple weeks he has been having issues where he begins to have muscle spasms in his left shoulder and arm. He states that it feels like his neck gets tight and he feels like there is something in his throat. He states he feels like his blood pressure is high when this happens. He does have a history of hypertension but does not take any antihypertensive medications on an outpatient basis. He also reports increased anxiety when this happens. He denies any chest pain or pressure at the time of examination. The patient is a current cigarette smoker. He states that he used to drink heavily but has had not drank in over a year. He is unaware of his family history in regards to cardiac disease. Troponins are negative 3. EKG reveals sinus mechanism with ST depression in lead 2 and T-wave inversions in lead 3 and aVF REVIEW OF SYSTEMS: At the time of my exam: CONSTITUTIONAL: Denies fever or chills. HEENT: Denies blurred vision, vision changes, or eye pain. Denies hemoptysis CARDIOVASCULAR: Denies chest pain. Denies orthopnea. Denies PND. Denies palpitations RESPIRATORY: Denies shortness of breath. GASTROINTESTINAL: Denies abdominal pain. Denies nausea or vomiting. HEMATOLOGIC: Denies bleeding disorders. GENITOURINARY: Denies any blood in urine. SKIN: Denies pruitis. Denies rash. PHYSICAL EXAM: VITAL SIGNS: Reviewed. GENERAL: Well-developed in no acute distress. HEENT: Head is normocephalic. Pupils are equal, round. Sclerae anicteric. Mucous membranes of the mouth are moist. Neck supple. No JVD or thyromegaly LUNGS: Respirations even and unlabored. Lungs essentially clear to auscultation bilaterally. HEART: Regular rate and rhythm. S1 and S2 heard. ABDOMEN: Soft. Nondistended. Nontender. EXTREMITIES: Normal range of motion. No clubbing or cyanosis. Peripheral pulses intact. No lower extremity edema NEUROLOGIC: Awake and alert. Oriented x 3. ASSESSMENT: Chest pain Hypertension, not on antihypertensive medications outpatient Nicotine dependence Prior alcohol abuse PLAN: An acute coronary and has been ruled out Obtain 2-D echo to assess cardiac structure and function Smoking cessation recommended Check lipid panel and hemoglobin A1c Patient to undergo dobutamine stress echo today If negative, the patient may be discharged home today from a cardiac standpoint Nurse practitioner note has been reviewed by physician. Signing provider agrees with the documented findings, assessment, and plan of care. Past Medical History Past Medical History: Hypertension History of Any Multi-Drug Resistant Organisms: None Reported Additional Past Surgical History / Comment(s): cyst removed from jaw, reconstructive surgery post dog bite. Past Anesthesia/Blood Transfusion Reactions: No Reported Reaction Past Psychological History: No Psychological Hx Reported Smoking Status: Current every day smoker Past Alcohol Use History: Daily Past Drug Use History: Marijuana Medications and Allergies Home Medications Medication Instructions Recorded Confirmed Type Aspirin EC [Ecotrin Low Dose] 81 mg PO DAILY 10/06/23 10/06/23 History Allergies Allergy/AdvReac Type Severity Reaction Status Date / Time No Known Allergies Allergy Verified 10/06/23 14:55 Physical Exam Vitals: Vital Signs Temp Pulse Resp BP Pulse Ox 10/07/23 03:10 60 18 128/75 99 10/07/23 00:18 59 L 10/07/23 00:06 57 L 10/06/23 16:23 57 L 18 133/86 10/06/23 11:21 97.9 F 76 18 161/92 99 Results 10/06/23 11:38 10/06/23 11:38 Cardiac Enzymes 10/06/23 10/06/23 10/06/23 Range/Units 11:38 11:38 16:08 AST 22 (17-59) U/L Troponin I <0.012 <0.012 (0.000-0.034) ng/mL 10/06/23 Range/Units 18:20 AST (17-59) U/L Troponin I <0.012 (0.000-0.034) ng/mL Coagulation 10/06/23 Range/Units 11:38 PT 11.3 (10.0-12.5) sec APTT 26.3 (22.0-30.0) sec CBC 10/06/23 Range/Units 11:38 WBC 11.1 H (3.8-10.6) k/uL RBC 4.86 (4.30-5.90) m/uL Hgb 15.8 (13.0-17.5) gm/dL Hct 48.2 (39.0-53.0) % Plt Count 247 (150-450) k/uL Comprehensive Metabolic Panel 10/06/23 Range/Units 11:38 Sodium 141 (137-145) mmol/L Potassium 4.1 (3.5-5.1) mmol/L Chloride 107 (98-107) mmol/L Carbon Dioxide 27 (22-30) mmol/L BUN 16 (9-20) mg/dL Creatinine 0.75 (0.66-1.25) mg/dL Glucose 110 H (74-99) mg/dL Calcium 9.3 (8.4-10.2) mg/dL AST 22 (17-59) U/L ALT 18 (4-49) U/L Alkaline Phosphatase 70 (38-126) U/L Total Protein 7.4 (6.3-8.2) g/dL Albumin 4.4 (3.5-5.0) g/dL Current Medications Generic Name Dose Route Start Last Admin Trade Name Freq PRN Reason Stop Dose Admin Aspirin 325 mg 10/07/23 09:00 Aspirin 325 Mg Tab PO DAILY SHAHZAD Lorazepam 0.5 mg 10/06/23 22:05 10/06/23 22:30 Lorazepam 2 Mg/Ml Inj IV 0.5 mg Q6HR PRN Administration Anxiety Nitroglycerin 0.4 mg 10/06/23 15:31 Nitroglycerin Sl Tabs 0.4 Mg Tab SUBLINGUAL Q5M PRN Chest Pain 10/06/23 11:38 10/06/23 11:38
--- NOTE | 2023-10-07 10:13 | CA ---
Transthoracic Echo Report Name: Onesimo Baumann Age: 48 Gender: M : 1975 Exam Date: 10/06/2023 16:45 Exam Location: [facility] Ht (in): 71 Wt (lb): 170 Ordering Physician: Timmy Bonilla Attending/Referring Phys: [id number], Irene Shroud Line Tier Colleen Swanson, TAMMIE Procedure CPT: Indications: Chest Pain Cardiac Hx: Technical Quality: Good Contrast 1: Total Dose (mL): Contrast 2: Total Dose (mL): MEASUREMENTS (Male / Female) Normal Values 2D ECHO LV Diastolic Diameter PLAX 5.3 cm 4.2 - 5.9 / 3.9 - 5.3 cm LV Systolic Diameter PLAX 4.0 cm IVS Diastolic Thickness 1.0 cm 0.6 - 1.0 / 0.6 - 0.9 cm LVPW Diastolic Thickness 1.0 cm 0.6 - 1.0 / 0.6 - 0.9 cm LV Relative Wall Thickness 0.4 RV Internal Dim ED PLAX 3.3 cm LA Systolic Diameter LX 3.7 cm 3.0 - 4.0 / 2.7 - 3.8 cm LV Diastolic Volume MOD 4C 131.0 cm??? LV Systolic Volume MOD 4C 77.2 cm??? LV Ejection Fraction MOD 4C 41.0 % LV Cardiac Index MOD 4C 1420.3 cm???/min???m??? LV Diastolic Length 4C 8.3 cm LV Systolic Length 4C 7.1 cm LV Diastolic Volume MOD 2C 95.4 cm??? LV Systolic Volume MOD 2C 46.0 cm??? LV Ejection Fraction MOD 2C 51.7 % LV Cardiac Index MOD 2C 1303.7 cm???/min???m??? LV Diastolic Length 2C 8.4 cm LV Systolic Length 2C 7.5 cm LA Volume 46.5 cm??? 18 - 58 / 22 - 52 cm??? LA Volume Index 23.6 cm???/m??? 16 - 28 cm???/m??? M-MODE Aortic Root Diameter MM 3.8 cm LA Systolic Diameter MM 3.4 cm LA Ao Ratio MM 0.9 DOPPLER AV Peak Velocity 121.8 cm/s AV Peak Gradient 5.9 mmHg Mitral E Point Velocity 91.2 cm/s Mitral A Point Velocity 44.9 cm/s Mitral E to A Ratio 2.0 MV Deceleration Time 257.1 ms MV E' Velocity 7.8 cm/s Mitral E to MV E' Ratio 11.7 TR Peak Velocity 198.4 cm/s TR Peak Gradient 15.8 mmHg Right Ventricular Systolic Press 25.8 mmHg FINDINGS Left Ventricle Left ventricular ejection fraction is estimated at 50-55 %. Left ventricular cavity size normal. Left ventricular wall thickness normal. Right Ventricle Normal right ventricular size. Right ventricular systolic pressure within normal limits. Right Atrium Normal right atrial size. Left Atrium Normal left atrial size. Mitral Valve Structurally normal mitral valve. No mitral stenosis, regurgitation or prolapse. Aortic Valve Trileaflet aortic valve. No aortic valve stenosis or regurgitation. Tricuspid Valve Structurally normal tricuspid valve. Mild tricuspid regurgitation. Pulmonic Valve Structurally normal pulmonic valve. No pulmonic regurgitation. Pericardium No pericardial effusion. Aorta Mild aortic dilatation at the level of the sinuses of valsalva 38 mm CONCLUSIONS Size and function and normal LV size and systolic function Previewed by: Dr. Edgar Varela MD (Electronically Signed) Final Date: 07 October 2023 10:12
[2023-10-07 10:15] LABS: Chol/HDL Ratio 4.03 Ratio; VLDL Calculation 11.32 mg/dL (5.00-40.00)
[2023-10-07] MEDS ORDERED: DOBUTamine DRIP for NUC MED 500 MG/250 ML BAG IV ONE (10:45)
[2023-10-07] MEDS ORDERED: NICOTINE 21MG/24HR PATCH TRANSDERM STA (12:59)
[2023-10-07] MEDS: LORazepam 2 MG/ML INJ IV PRN (13:06)
[2023-10-07 13:27] VITALS: BP 141/87
--- NOTE | 2023-10-07 14:22 | CA ---
Dobutamine Stress Echocardiogram Report Onesimo Baumann Age: 48 Gender: M : 1975 Exam Date: 10/07/2023 10:34 Exam Location: [facility] Ordering Physician: Gabrielle Cope Referring Physician: [id number] Department Director: Chance Truong Technologist: Ht (in): 71 Wt (lb): 170 Procedure CPT: Indication: CP ICD-9 Codes: Rhythm: Patient History: Cardiac Medications: SEE CHART Medications in past 24 hours: Contrast: N/A Total Dose (mL): Stress Results Protocol: Dobutamine Peak Dose (???g/kg/min): 40 Duration (min:sec): Atropine:(mg) None Target HR: 146 Double Product: [id number] Resting HR: 63 Resting BP: 144 / 87 Peak HR: 155 Peak BP: 200 / 103 Max Predicted HR: 172 90 % Max Predicted HR Stress Summary: BP Response: Reason for Termination: Target HR Cardiac Symptoms: NAUSEA,DIZZINESS,VOMITING ECG Analysis Resting EKG: Stress EKG: Arrhythmia: Echo Analysis Base Echo Analysis: Low Echo Anaylsis: Peak Echo Analysis: Recovery Echo: MEASUREMENTS (Male/Female) Normal Values CONCLUSIONS No ECG or echocardiographic evidence for ischemia on this due to the stress echo Dr. Edgar Varela MD (Electronically Signed) Final Date: 07 October 2023 14:21
[2023-10-07 15:26] VITALS: PULSE 58; RESP 17
[2023-10-07] MEDS ORDERED: SYMBICORT 160-4.5 MCG INHALER INHALATION SCH (20:00)
--- NOTE | 2023-10-10 22:25 | HP ---
HISTORY AND PHYSICAL HISTORY OF PRESENT ILLNESS: This 48-year-old male came in with chest pain, chest discomfort, worse in left side of the chest. Diastolic is pressure, typical debris, smoker. Some family cardiac history. HOME MEDICATIONS: Aspirin. ALLERGIES: Negative. REVIEW OF SYSTEMS: A 14-point review of system otherwise, suffered some dizziness with shortness of breath during the day. EKG sinus rhythm, inverted T in lead 3, AVF. PAST MEDICAL HISTORY: Hypertension. PAST SURGICAL HISTORY: reconstructive surgery post dog bite. SOCIAL HISTORY: Chronic every day smoker, daily marijuana. PHYSICAL EXAMINATION: VITAL SIGNS: Reviewed. Blood pressure 161/92, O2 saturation 99, pulse 76, respiratory rate 16 to 18. CARDIOVASCULAR: S1, S2. LUNGS: Scattered rhonchi and wheeze. HEMATOLOGY: Negative for Homans. HEENT: Pupils equal, round, and reactive. MUSCULOSKELETAL: Range of motion full x4. PSYCH: Fair mood and affect. ASSESSMENT: Atypical chest pain, rule out NM. Cardiology consult. Please see further orders. Rule out coronary artery syndrome. Please see further orders. MMODL / IJN: [id number] /
== END 2023-10-07 18:50 | disposition home or self-care (01) ==
LOC: EC 11:20 → 6NMEDSUR 15:11
PROVIDERS: ADMIT Family Medicine; ATTEND Family Medicine
DX: R07.89 Other chest pain (principal); M62.838 Other muscle spasm; R06.02 Shortness of breath; R42 Dizziness and giddiness; F17.210 Nicotine dependence, cigarettes, uncomplicated; I10 Essential (primary) hypertension; F41.9 Anxiety disorder, unspecified; Z79.82 Long term (current) use of aspirin; Z87.828 Personal history of other (healed) physical injury and trauma; Z87.898 Personal history of other specified conditions; Z82.49 Family history of ischemic heart disease and other diseases of the circulatory system
CPT/HCPCS: 96376; 96374; 99285; 36415; 94664; 93005; 93306; 93351; 85379; 80061; 80053; 83735; 84484; 85025; 85610; 85730; 83036; 71046; G0378 ×2; S4990 ×2; J2060 ×2; J1250

== ENCOUNTER 2023-11-13 14:37 | Emergency (ER) | payer BC, OTHER ==
--- NOTE | 2023-11-13 15:43 | ED ---
General Adult HPI - General Chief complaint: Dizziness Stated complaint: tightness in chest/chills Time Seen by Provider: 11/13/23 15:10 Source: patient, RN notes reviewed, old records reviewed Mode of arrival: ambulatory Limitations: no limitations - History of Present Illness Initial comments: Patient is a 48-year-old male who presents emergency department with what seems like anxiety. Has been complaining of lightheadedness, muscle tightness that is somewhat general in the shoulders and chest, feeling of fullness in his throat, and anxiety. Started today while at work. In the last year he has noticed similar symptoms, and he believes it is likely anxiety related. He was admitted last month for his chest symptoms and he underwent multiple stress test which were all negative. Was discharged home with inhalers. He denies any other acute complaints at this time including fevers, chills. Endorses occasional nausea. He believes this is likely anxiety related but wants to be evaluated. Does not on any medications for his anxiety. Presents for further evaluation. - Related Data Home Medications Medication Instructions Recorded Confirmed Aspirin EC [Ecotrin Low Dose] 81 mg PO DAILY 10/06/23 10/06/23 Previous Rx's Medication Instructions Recorded Budesonide-Formot 160-4.5 Mcg 2 puff INHALATION RT-BID 30 Days 10/07/23 [Symbicort 160-4.5 Mcg Inhaler] #1 each LORazepam [Ativan] 1 mg PO BID PRN 3 Days #6 tab 11/13/23 Allergies Allergy/AdvReac Type Severity Reaction Status Date / Time No Known Allergies Allergy Verified 11/13/23 14:57 Review of Systems ROS Statement: Those systems with pertinent positive or pertinent negative responses have been documented in the HPI. Review of Systems: CONST: Denies fever EYES: Denies blurry vision ENT: Denies nasal congestion C/V: Endorses chest wall tightness RESP: Denies shortness of breath GI: Denies abdominal pain : Denies dysuria SKIN: Denies rash. MSK: Denies joint pain. NEURO: Denies headache ROS Other: All systems not noted in ROS Statement are negative. Past Medical History Past Medical History: Hypertension Additional Past Medical History / Comment(s): gout History of Any Multi-Drug Resistant Organisms: None Reported Additional Past Surgical History / Comment(s): cyst removed from jaw, reconstructive surgery post dog bite. Past Anesthesia/Blood Transfusion Reactions: No Reported Reaction Past Psychological History: No Psychological Hx Reported, Anxiety Smoking Status: Current every day smoker Past Alcohol Use History: None Reported, Daily Past Drug Use History: Marijuana General Exam - General Exam Comments Initial Comments: General: Appears anxious HEAD: Normal with no signs of head trauma. EYES: PERRLA, EOMI, conjunctiva normal, no discharge. Pupils are 3 mm and equal bilaterally. ENT: Hearing grossly intact, normal oropharynx. RESPIRATORY: Clear breath sounds bilaterally. No wheezes, rales, or rhonchi. C/V: Regular rate and rhythm. S1 and S2 auscultated, no edema, peripheral pulses 2+ and intact throughout. Chest wall nontender to palpation. ABD: Abd is soft, nontender, nondistended EXT: Normal range of motion, no obvious deformity SKIN: No rashes or lesions observed on exposed skin. NEURO: Alert and oriented x 4. No focal deficits. GCS of 15. Limitations: no limitations Course Vital Signs 11/13/23 11/13/23 11/13/23 14:54 16:10 17:10 Temperature 98.5 F 98.0 F Pulse Rate 71 65 63 Respiratory 18 18 17 Rate Blood Pressure 133/74 128/85 136/83 O2 Sat by Pulse 99 99 98 Oximetry Medical Decision Making - Medical Decision Making Was pt. sent in by a medical professional or institution ([facility] Spivey, [facility] [employer], urgent care, hospital, or jail...) When possible be specific @ -No Did you speak to anyone other than the patient for history (EMS, parent, family, police, friend...)? What history was obtained from this source @ -No Did you review nursing and triage notes (agree or disagree)? Why? @ -I reviewed and agree with nursing and triage notes Were old charts reviewed (outside hosp., previous admission, EMS record, old EKG, old radiological studies, urgent care reports/EKG's, jail records)? Report findings @ -Old charts reviewed Differential Diagnosis (chest pain, altered mental status, abdominal pain women, abdominal pain men, vaginal bleeding, weakness, fever, dyspnea, syncope, headache, dizziness, GI bleed, back pain, seizure, CVA, palpatations, mental health, musculoskeletal)? @ -Differential Dizziness: Benign paroxysmal positional Vertigo, Menieres disease, otitis media, acoustic neuroma, vertebrobasilar insufficiency, cerebellar stroke, encephalitis, hypovolemic, arrhythmia, coronary artery syndrome, anemia, this is not meant to be an all-inclusive list EKG interpreted by me (3pts min.). @ -As above X-rays interpreted by me (1pt min.). @ -Chest x-ray reveals no obvious acute cardiopulmonary process. CT interpreted by me (1pt min.). @ -None done U/S interpreted by me (1pt. min.). @ -None done What testing was considered but not performed or refused? (CT, X-rays, U/S, labs)? Why? @ -None What meds were considered but not given or refused? Why? @ -None Did you discuss the management of the patient with other professionals (professionals i.e. , PA, [employer], lab, RT, psych nurse, social worker palliative care, mixing operator, teacher, police liaison officer, case resource manager)? Give summary @ -No Was smoking cessation discussed for >3mins.? @ -No Was critical care preformed (if so, how long)? @ -No Were there social determinants of health that impacted care today? How? (Homelessness, low income, unemployed, alcoholism, drug addiction, transportation, low edu. Level, literacy, decrease access to med. care, prison, rehab)? @ -No Was there de-escalation of care discussed even if they declined (Discuss DNR or withdrawal of care, Hospice)? DNR status @ -No What co-morbidities impacted this encounter? (DM, HTN, Smoking, COPD, CAD, Cancer, CVA, ARF, Chemo, Hep., AIDS, mental health diagnosis, sleep apnea, morbid obesity)? @ -None Was patient admitted / discharged? Hospital course, mention meds given and route, prescriptions, significant lab abnormalities, going to OR and other pertinent info. @ -Presents to the emergency department with what appears to be anxiety however cannot rule out other etiology at this time. We will obtain cardiac workup as well as viral swabs. Patient was in agreement this plan. Patient will be administered a 1 L fluid bolus as well as Ativan for symptomatic therapy. Patient was in agreement this plan. Vital signs are within acceptable limits. EKG shows no signs of acute ischemia. Chest x-ray reveals no obvious acute cardiopulmonary process. Patient's laboratory studies are all within acceptable limits including undetectable troponin. Patient does have a slight leukocytosis of 14 which could be reactive. On reevaluation, patient is feeling improved. I discussed his workup. I did offer observation admission which she declined and I also offered a second troponin at this time despite the patient being asymptomatic which she also declined. He would like to go home at this time. We both agree this is likely anxiety causing his symptoms. Recommended follow-up with his PCP and possible obtaining therapist. He was in agreement this plan. I will provide the patient with a prescription for Ativan. I instructed the pat ient to follow up with their PCP in the next 1-3 days.. I explained that the patient should return to the emergency department if they experience any worsening symptoms. Strict return precautions were discussed with the patient. The patient expressed understanding of these instructions. I answered all questions that the patient had. The patient was discharged home in good condition with their prescriptions and follow up information. Undiagnosed new problem with uncertain prognosis? @ -No Drug Therapy requiring intensive monitoring for toxicity (Heparin, Nitro, Insulin, Cardizem)? @ -No Were any procedures done? @ -No Diagnosis/symptom? @ -Anxiety Acute, or Chronic, or Acute on Chronic? @ -Acute Uncomplicated (without systemic symptoms) or Complicated (systemic symptoms)? @ -Complicated Side effects of treatment? @ -None Exacerbation, Progression, or Severe Exacerbation] @ -No Poses a threat to life or bodily function? @ -No - Lab Data Result diagrams: 11/13/23 15:28 11/13/23 15:28 Lab Results 11/13/23 11/13/23 11/13/23 Range/Units 15:28 15:28 15:28 WBC 14.2 H (3.8-10.6) k/uL RBC 4.55 (4.30-5.90) m/uL Hgb 14.8 (13.0-17.5) gm/dL Hct 45.0 (39.0-53.0) % MCV 98.9 (80.0-100.0) fL MCH 32.6 (25.0-35.0) pg MCHC 33.0 (31.0-37.0) g/dL RDW 13.6 (11.5-15.5) % Plt Count 231 (150-450) k/uL MPV 8.1 Neutrophils % 83 % Lymphocytes % 11 % Monocytes % 4 % Eosinophils % 2 % Basophils % 0 % Neutrophils # 11.7 H (1.3-7.7) k/uL Lymphocytes # 1.5 (1.0-4.8) k/uL Monocytes # 0.6 (0-1.0) k/uL Eosinophils # 0.3 (0-0.7) k/uL Basophils # 0.0 (0-0.2) k/uL PT 10.1 (10.0-12.5) sec INR 0.9 (<1.2) APTT 25.2 (22.0-30.0) sec Sodium (137-145) mmol/L Potassium (3.5-5.1) mmol/L Chloride (98-107) mmol/L Carbon Dioxide (22-30) mmol/L Anion Gap mmol/L BUN (9-20) mg/dL Creatinine (0.66-1.25) mg/dL Est GFR (CKD-EPI)AfAm (>60 ml/min/1.73 sqM) Est GFR (CKD-EPI)NonAf (>60 ml/min/1.73 sqM) Glucose (74-99) mg/dL Calcium (8.4-10.2) mg/dL Magnesium (1.6-2.3) mg/dL Total Bilirubin (0.2-1.3) mg/dL AST (17-59) U/L ALT (4-49) U/L Alkaline Phosphatase (38-126) U/L Troponin I (0.000-0.034) ng/mL Total Protein (6.3-8.2) g/dL Albumin (3.5-5.0) g/dL Urine Color Colorless Urine Appearance Clear (Clear) Urine pH 5.5 (5.0-8.0) Ur Specific Martin 1.007 (1.001-1.035) Urine Protein Negative (Negative) Urine Glucose (UA) Negative (Negative) Urine Ketones Negative (Negative) Urine Blood Small H (Negative) Urine Nitrite Negative (Negative) Urine Bilirubin Negative (Negative) Urine Urobilinogen <2.0 (<2.0) mg/dL Ur Leukocyte Esterase Negative (Negative) Urine RBC 1 (0-5) /hpf Urine WBC <1 (0-5) /hpf Urine Mucus Rare H (None) /hpf Influenza Type A (PCR) (Not Detectd) Influenza Type B (PCR) (Not Detectd) RSV (PCR) (Not Detectd) SARS-CoV-2 (PCR) (Not Detectd) 11/13/23 11/13/23 11/13/23 Range/Units 15:28 15:28 15:28 WBC (3.8-10.6) k/uL RBC (4.30-5.90) m/uL Hgb (13.0-17.5) gm/dL Hct (39.0-53.0) % MCV (80.0-100.0) fL MCH (25.0-35.0) pg MCHC (31.0-37.0) g/dL RDW (11.5-15.5) % Plt Count (150-450) k/uL MPV Neutrophils % % Lymphocytes % % Monocytes % % Eosinophils % % Basophils % % Neutrophils # (1.3-7.7) k/uL Lymphocytes # (1.0-4.8) k/uL Monocytes # (0-1.0) k/uL Eosinophils # (0-0.7) k/uL Basophils # (0-0.2) k/uL PT (10.0-12.5) sec INR (<1.2) APTT (22.0-30.0) sec Sodium 139 (137-145) mmol/L Potassium 4.3 (3.5-5.1) mmol/L Chloride 109 H (98-107) mmol/L Carbon Dioxide 22 (22-30) mmol/L Anion Gap 8 mmol/L BUN 13 (9-20) mg/dL Creatinine 0.65 L (0.66-1.25) mg/dL Est GFR (CKD-EPI)AfAm >90 (>60 ml/min/1.73 sqM) Est GFR (CKD-EPI)NonAf >90 (>60 ml/min/1.73 sqM) Glucose 97 (74-99) mg/dL Calcium 9.5 (8.4-10.2) mg/dL Magnesium 1.9 (1.6-2.3) mg/dL Total Bilirubin 0.7 (0.2-1.3) mg/dL AST 28 (17-59) U/L ALT 24 (4-49) U/L Alkaline Phosphatase 67 (38-126) U/L Troponin I <0.012 (0.000-0.034) ng/mL Total Protein 7.4 (6.3-8.2) g/dL Albumin 4.5 (3.5-5.0) g/dL Urine Color Urine Appearance (Clear) Urine pH (5.0-8.0) Ur Specific Martin (1.001-1.035) Urine Protein (Negative) Urine Glucose (UA) (Negative) Urine Ketones (Negative) Urine Blood (Negative) Urine Nitrite (Negative) Urine Bilirubin (Negative) Urine Urobilinogen (<2.0) mg/dL Ur Leukocyte Esterase (Negative) Urine RBC (0-5) /hpf Urine WBC (0-5) /hpf Urine Mucus (None) /hpf Influenza Type A (PCR) Not Detected (Not Detectd) Influenza Type B (PCR) Not Detected (Not Detectd) RSV (PCR) Not Detected (Not Detectd) SARS-CoV-2 (PCR) Not Detected (Not Detectd) - EKG Data -: EKG Interpreted by Me EKG Comments: 12-lead Electrocardiogram Interpretation Note EKG was reviewed and interpreted by myself. 12-lead ECG performed at 1546 is interpreted by me as revealing incomplete right bundle branch block at a rate of 62 beats per minute. Gilbert is normal. ID interval is 127 ms, QRS durations 102 ms, QTc is 403 ms.. T wave inversion in lead III which is seen on prior EKGs.. [R wave progression across the precordium was satisfactory]. [By my interpretation this EKG is non-diagnostic for acute ischemia]. No acute findings at this time. Compared with EKG from September 2023 is relatively unchanged. Disposition Clinical Impression: Anxiety Disposition: HOME SELF-CARE Condition: Good Instructions (If sedation given, give patient instructions): Anxiety (ED) Prescriptions: LORazepam [Ativan] 1 mg PO BID PRN 3 Days #6 tab PRN Reason: Anxiety Is patient prescribed a controlled substance at d/c from ED?: Yes Referrals: Ishan Abarca MD [Primary Care Provider] - 1-2 days Time of Disposition: 17:19
[2023-11-13 15:49] LABS: Basophils % (A) 0 %; Eosinophils # (A) 0.3 k/uL (0-0.7); Eosinophils % (A) 2 %; HGB 14.8 gm/dL (13.0-17.5); Lymphocytes # (A) 1.5 k/uL (1.0-4.8); Lymphocytes % (A) 11 %; MCH 32.6 pg (25.0-35.0); MCV 98.9 fL (80.0-100.0); Mean Platelet Volume 8.1; Monocytes # (A) 0.6 k/uL (0-1.0); Monocytes % (A) 4 %; Neutrophils # (A) 11.7 k/uL (1.3-7.7); Neutrophils % (A) 83 %; Platelet Count 231 k/uL (150-450); RBC 4.55 m/uL (4.30-5.90); RDW 13.6 % (11.5-15.5); WBC 14.2 k/uL (3.8-10.6)
[2023-11-13 15:59] LABS: INR 0.9 (<1.2); Partial Thromboplastin Time 25.2 sec (22.0-30.0); Prothrombin Time 10.1 sec (10.0-12.5)
[2023-11-13] MEDS: LORazepam 1 MG TAB PO STA (16:00)
[2023-11-13] MEDS: SODIUM CHLORIDE 0.9% 1,000 ML IV STA (16:01)
--- NOTE | 2023-11-13 16:14 | XR ---
EXAMINATION TYPE: XR chest 2V DATE OF EXAM: 11/13/2023 3:51 PM CLINICAL INDICATION:Male, 48 years old with history of Chest Pain; COMPARISON: Chest radiographs from 10/06/2023 TECHNIQUE: XR chest 2V Frontal and lateral views of the chest. FINDINGS: Lungs/Pleura: There is no evidence of pleural effusion, focal consolidation, or pneumothorax. Pulmonary vascularity: Unremarkable. Heart/mediastinum: Cardiomediastinal silhouette is unremarkable. Musculoskeletal: No acute osseous pathology. Retained metallic fragments project over the shoulder si milar to prior IMPRESSION: No acute cardiopulmonary disease/process.
[2023-11-13 16:22] LABS: Appearance,Urine Clear (Clear); Bilirubin,Urine Negative (Negative); Blood,Urine Small (Negative); Color,Urine Colorless; Glucose,Urine (UA) Negative (Negative); Ketones,Urine Negative (Negative); Leukocyte Esterase,Urine Negative (Negative); Mucus,Urine Rare /hpf; Nitrite,Urine Negative (Negative); PH, Urine 5.5 (5.0-8.0); Protein,Urine Negative (Negative); RBC,Urine 1 /hpf (0-5); Specific Gravity,Urine 1.007 (1.001-1.035); Urobilinogen,Urine <2.0 mg/dL (<2.0); WBC,Urine <1 /hpf (0-5)
[2023-11-13 16:38] LABS: ALT 24 U/L (4-49); AST 28 U/L (17-59); African American GFR (CKD) >90 (>60 ml/min/1.73 sqM); Albumin 4.5 g/dL (3.5-5.0); Alkaline Phosphatase 67 U/L (38-126); Anion Gap 8 mmol/L; Blood Urea Nitrogen 13 mg/dL (9-20); Calcium 9.5 mg/dL (8.4-10.2); Carbon Dioxide 22 mmol/L (22-30); Chloride 109 mmol/L (98-107); Glucose 97 mg/dL (74-99); Magnesium 1.9 mg/dL (1.6-2.3); Non-African American GFR(CKD) >90 (>60 ml/min/1.73 sqM); Sodium 139 mmol/L (137-145); Total Bilirubin 0.7 mg/dL (0.2-1.3); Total Protein 7.4 g/dL (6.3-8.2)
[2023-11-13] MEDS: KETOROLAC 15 MG/ML 1 ML VIAL IVP STA (16:41)
[2023-11-13 16:51] LABS: Potassium 4.3 mmol/L (3.5-5.1)
[2023-11-13 17:17] VITALS: BP 136/83; PULSE 63; RESP 17; TEMP 98
== END 2023-11-13 17:32 | disposition home or self-care (01) ==
LOC: EC 14:37
DX: F41.9 Anxiety disorder, unspecified (principal); I45.10 Unspecified right bundle-branch block; I10 Essential (primary) hypertension; F17.200 Nicotine dependence, unspecified, uncomplicated; D72.829 Elevated white blood cell count, unspecified; F12.90 Cannabis use, unspecified, uncomplicated; Z20.822 Contact with and (suspected) exposure to COVID-19; Z79.82 Long term (current) use of aspirin
CPT/HCPCS: 36415; 93005; 80053; 83735; 84484; 85025; 85610; 85730; 81001; 87636; 71046; 99285; 96374; 96361; J1885

== ENCOUNTER 2024-03-25 09:59 | Emergency (ER) | payer BC, OTHER ==
[2024-03-25 10:20] VITALS: RESP 16
[2024-03-25 10:41] LABS: Basophils % (A) 0 %; Eosinophils # (A) 0.3 k/uL (0-0.7); Eosinophils % (A) 3 %; HCT 45.1 % (39.0-53.0); HGB 14.6 gm/dL (13.0-17.5); Lymphocytes # (A) 1.5 k/uL (1.0-4.8); Lymphocytes % (A) 15 %; MCH 32.6 pg (25.0-35.0); MCHC 32.4 g/dL (31.0-37.0); MCV 100.4 fL (80.0-100.0); Mean Platelet Volume 8.6; Monocytes # (A) 0.5 k/uL (0-1.0); Monocytes % (A) 5 %; Neutrophils # (A) 7.8 k/uL (1.3-7.7); Neutrophils % (A) 76 %; Platelet Count 266 k/uL (150-450); RDW 13.4 % (11.5-15.5); WBC 10.3 k/uL (3.8-10.6)
--- NOTE | 2024-03-25 11:11 | ED ---
General Adult HPI - General Chief complaint: Chest Pain Stated complaint: Possible allergic reaction Time Seen by Provider: 03/25/24 11:08 Source: patient, RN notes reviewed Mode of arrival: ambulatory Limitations: no limitations - History of Present Illness Initial comments: 49-year-old male presenting to the ER with chief complaint of anxiety. States he takes 0.5 mg lorazepam daily for generalized anxiety disorder but he feels as though it is making his symptoms worse. States when he takes the lorazepam his chest becomes more tight and feels some shortness of breath. States he began the lorazepam 7 months ago. Denies any current symptoms such as chest pain, shortness of breath, palpitations. Denies history of cardiac issues. He follows with Dr. Abarca for his anxiety. Denies SI or HI. - Related Data Home Medications Medication Instructions Recorded Confirmed Aspirin EC [Ecotrin Low Dose] 81 mg PO DAILY 10/06/23 10/06/23 Previous Rx's Medication Instructions Recorded Budesonide-Formot 160-4.5 Mcg 2 puff INHALATION RT-BID 30 Days 10/07/23 [Symbicort 160-4.5 Mcg Inhaler] #1 each LORazepam [Ativan] 1 mg PO BID PRN 3 Days #6 tab 11/13/23 Allergies Allergy/AdvReac Type Severity Reaction Status Date / Time No Known Allergies Allergy Verified 11/13/23 14:57 Review of Systems ROS Statement: Those systems with pertinent positive or pertinent negative responses have been documented in the HPI. ROS Other: All systems not noted in ROS Statement are negative. Past Medical History Past Medical History: Hypertension Additional Past Medical History / Comment(s): gout History of Any Multi-Drug Resistant Organisms: None Reported Additional Past Surgical History / Comment(s): cyst removed from jaw, reconstructive surgery post dog bite. Past Anesthesia/Blood Transfusion Reactions: No Reported Reaction Past Psychological History: No Psychological Hx Reported, Anxiety Smoking Status: Current every day smoker Past Alcohol Use History: None Reported, Daily Past Drug Use History: Marijuana General Exam - General Exam Comments Initial Comments: Visual Physical Exam Vital signs reviewed General: Well-appearing, nontoxic, no acute distress. Head: Normocephalic, atraumatic Eyes: PERRLA, EOMI ENT: Airway patent Chest: Nonlabored breathing Skin: No visual rash, normal skin tone Neuro: Alert and oriented 3 Musculoskeletal: No gross abnormalities Limitations: no limitations General appearance: alert, in no apparent distress Head exam: Present: atraumatic, normocephalic, normal inspection Eye exam: Present: normal appearance, PERRL, EOMI. Absent: scleral icterus, conjunctival injection, periorbital swelling ENT exam: Present: normal exam, mucous membranes moist Neck exam: Present: normal inspection. Absent: tenderness, meningismus, lymphadenopathy Respiratory exam: Present: normal lung sounds bilaterally. Absent: respiratory distress, wheezes, rales, rhonchi, stridor Cardiovascular Exam: Present: regular rate, normal rhythm, normal heart sounds. Absent: systolic murmur, diastolic murmur, rubs, gallop, clicks GI/Abdominal exam: Present: soft, normal bowel sounds. Absent: distended, tenderness, guarding, rebound, rigid Extremities exam: Present: normal inspection, full ROM, normal capillary refill. Absent: tenderness, pedal edema, joint swelling, calf tenderness Neurological exam: Present: alert, oriented X3 Psychiatric exam: Present: normal affect, normal mood Skin exam: Present: warm, dry, intact, normal color. Absent: rash Course Vital Signs 03/25/24 03/25/24 03/25/24 10:17 12:06 12:11 Temperature 97.9 F Pulse Rate 74 53 L Pulse Rate [ 55 L Process Safety Engineering Technologist ] Respiratory 16 16 Rate Blood Pressure 136/76 150/94 O2 Sat by Pulse 99 99 Oximetry 03/25/24 14:03 Temperature 98.0 F Pulse Rate 55 L Pulse Rate [ Process Safety Engineering Technologist ] Respiratory 16 Rate Blood Pressure 175/112 O2 Sat by Pulse 100 Oximetry EKG Findings - EKG Results: EKG: interpreted by ERMD (EKG reveals normal sinus rhythm with no ST changes. Ventricular rate 63 bpm, OH interval 120, QRS duration 105, QT/QTc 408/416) Medical Decision Making - Medical Decision Making I completed the quick note portion of this chart signed Mariia Alejandra PA-C Was pt. sent in by a medical professional or institution ([facility], [employer], urgent care, hospital, or alf...) When possible be specific @ -No Did you speak to anyone other than the patient for history (EMS, parent, family, police, friend...)? What history was obtained from this source @ -No Did you review nursing and triage notes (agree or disagree)? Why? @ -I reviewed and agree with nursing and triage notes Were old charts reviewed (outside hosp., previous admission, EMS record, old EKG, old radiological studies, urgent care reports/EKG's, alf records)? Report findings @ -No old charts were reviewed Differential Diagnosis (chest pain, altered mental status, abdominal pain women, abdominal pain men, vaginal bleeding, weakness, fever, dyspnea, syncope, headache, dizziness, GI bleed, back pain, seizure, CVA, palpatations, mental health, musculoskeletal)? @ -Differential Chest Pain: Stable Angina, Unstable Angina, STEMI, NSTEMI Aortic Dissection, Pneumothorax, Musculoskeletal, Esophageal Spasm GERD, Cholecystitis, Pancreatitis, Zoster, this is not meant to be an all-inclusive list. EKG interpreted by me (3pts min.). @ -As above X-rays interpreted by me (1pt min.). @ -Chest x-ray reveals no acute process CT interpreted by me (1pt min.). @ -None done U/S interpreted by me (1pt. min.). @ -None done What testing was considered but not performed or refused? (CT, X-rays, U/S, labs)? Why? @ -None What meds were considered but not given or refused? Why? @ -Consider giving hydroxyzine however cannot give due to bradycardia Did you discuss the management of the patient with other professionals (professionals i.e. , PA, BRAZER ASSEMBLER, lab, RT, psych nurse, manager social, criminal justice lawyer, teacher, corporate officer, complex case manager)? Give summary @ -No Was smoking cessation discussed for >3mins.? @ -No Was critical care preformed (if so, how long)? @ -No Were there social determinants of health that impacted care today? How? (Ho melessness, low income, unemployed, alcoholism, drug addiction, transportation, low edu. Level, literacy, decrease access to med. care, senior living, rehab)? @ -No Was there de-escalation of care discussed even if they declined (Discuss DNR or withdrawal of care, Hospice)? DNR status @ -No What co-morbidities impacted this encounter? (DM, HTN, Smoking, COPD, CAD, Cancer, CVA, ARF, Chemo, Hep., AIDS, mental health diagnosis, sleep apnea, morbid obesity)? @ -None Was patient admitted / discharged? Hospital course, mention meds given and route, prescriptions, significant lab abnormalities, going to OR and other pertinent info. @ -Patient was discharged. Patient was seen and evaluated for anxiety. Patient states that his lorazepam makes his anxiety worse. He is currently asymptomatic. Vital signs are stable, patient is mildly bradycardic throughout ER visit at 53 and 55 bpm. Physical examination is unremarkable. Cardiac workup including CBC, CMP, and troponin is unremarkable. Chest x-ray reveals no acute process. EKG reveals normal sinus rhythm with no ST changes. Discussed with patient that no red flag symptoms upon examination today. He must follow- up with PCP regarding his anxiety. Cannot give hydroxyzine due to bradycardia. Strict return parameters discussed. Case discussed with my attending Dr. Lubin. Patient discharged in stable condition. Undiagnosed new problem with uncertain prognosis? @ -No Drug Therapy requiring intensive monitoring for toxicity (Heparin, Nitro, Insulin, Cardizem)? @ -No Were any procedures done? @ -No Diagnosis/symptom? @ -Generalized anxiety disorder Acute, or Chronic, or Acute on Chronic? @ -Acute on chronic Uncomplicated (without systemic symptoms) or Complicated (systemic symptoms)? @ -Uncomplicated Side effects of treatment? @ -No Exacerbation, Progression, or Severe Exacerbation? @ -No Poses a threat to life or bodily function? How? (Chest pain, [place], SD, pneumonia, PE, COPD, DKA, ARF, appy, cholecystitis, CVA, Diverticulitis, Homicidal, Suicidal, threat to staff... and all critical care pts) @ -Low likelihood - Lab Data Result diagrams: 03/25/24 10:28 03/25/24 10:28 Lab Results 03/25/24 03/25/24 03/25/24 Range/Units 10:28 10:28 10:28 WBC 10.3 (3.8-10.6) k/uL RBC 4.50 (4.30-5.90) m/uL Hgb 14.6 (13.0-17.5) gm/dL Hct 45.1 (39.0-53.0) % MCV 100.4 H (80.0-100.0) fL MCH 32.6 (25.0-35.0) pg MCHC 32.4 (31.0-37.0) g/dL RDW 13.4 (11.5-15.5) % Plt Count 266 (150-450) k/uL MPV 8.6 Neutrophils % 76 % Lymphocytes % 15 % Monocytes % 5 % Eosinophils % 3 % Basophils % 0 % Neutrophils # 7.8 H (1.3-7.7) k/uL Lymphocytes # 1.5 (1.0-4.8) k/uL Monocytes # 0.5 (0-1.0) k/uL Eosinophils # 0.3 (0-0.7) k/uL Basophils # 0.0 (0-0.2) k/uL Sodium 140 (137-145) mmol/L Potassium 3.8 (3.5-5.1) mmol/L Chloride 108 H (98-107) mmol/L Carbon Dioxide 26 (22-30) mmol/L Anion Gap 6 mmol/L BUN 12 (9-20) mg/dL Creatinine 0.65 L (0.66-1.25) mg/dL Est GFR (CKD-EPI)AfAm >90 (>60 ml/min/1.73 sqM) Est GFR (CKD-EPI)NonAf >90 (>60 ml/min/1.73 sqM) Glucose 114 H (74-99) mg/dL Calcium 9.4 (8.4-10.2) mg/dL Total Bilirubin 0.8 (0.2-1.3) mg/dL AST 25 (17-59) U/L ALT 21 (4-49) U/L Alkaline Phosphatase 62 (38-126) U/L Troponin I <0.012 (0.000-0.034) ng/mL Total Protein 7.1 (6.3-8.2) g/dL Albumin 4.3 (3.5-5.0) g/dL Disposition Clinical Impression: Generalized anxiety disorder Disposition: HOME SELF-CARE Condition: Stable Instructions (If sedation given, give patient instructions): Generalized A nxiety Disorder (ED) Additional Instructions: Please follow-up with Dr. Abarca. Please return to the Emergency Department if symptoms worsen or any other concerns. Is patient prescribed a controlled substance at d/c from ED?: No Referrals: Ishan Abarca MD [Primary Care Provider] - 1-2 days Time of Disposition: 13:43
[2024-03-25 11:19] LABS: ALT 21 U/L (4-49); AST 25 U/L (17-59); African American GFR (CKD) >90 (>60 ml/min/1.73 sqM); Albumin 4.3 g/dL (3.5-5.0); Alkaline Phosphatase 62 U/L (38-126); Anion Gap 6 mmol/L; Blood Urea Nitrogen 12 mg/dL (9-20); Calcium 9.4 mg/dL (8.4-10.2); Carbon Dioxide 26 mmol/L (22-30); Chloride 108 mmol/L (98-107); Glucose 114 mg/dL (74-99); Non-African American GFR(CKD) >90 (>60 ml/min/1.73 sqM); Potassium 3.8 mmol/L (3.5-5.1); Sodium 140 mmol/L (137-145); Total Bilirubin 0.8 mg/dL (0.2-1.3); Total Protein 7.1 g/dL (6.3-8.2)
--- NOTE | 2024-03-25 12:09 | XR ---
EXAMINATION TYPE: XR chest 2V DATE OF EXAM: 03/25/2024 11:12 AM CLINICAL INDICATION:Male, 49 years old with history of Chest Pain; [facility] COMPARISON: Chest radiographs from 11/13/2023 TECHNIQUE: XR chest 2V Frontal view of the chest. FINDINGS: Lungs/Pleura: There is no evidence of pleural effusion, focal consolidation, or pneumothorax. Pulmonary vascularity: Unremarkable. Heart/mediastinum: Cardiomediastinal silhouette is unremarkable. Musculoskeletal: No acute osseous pathology. Other findings: Metallic densities project over the right shoulder. IMPRESSION: No acute cardiopulmonary disease/process.
[2024-03-25 12:16] VITALS: PULSE 55
[2024-03-25 14:12] VITALS: BP 175/112; TEMP 98
== END 2024-03-25 14:13 | disposition home or self-care (01) ==
LOC: EC 09:59
DX: F41.1 Generalized anxiety disorder (principal); F17.200 Nicotine dependence, unspecified, uncomplicated
CPT/HCPCS: 36415; 71046; 80053; 84484; 85025; 93005; 99285